=== PATIENT | male | born 1955 | race Caucasian/White ===

== ENCOUNTER 2016-09-02 08:28 | Inpatient (IN) | payer OTHER ==
[2016-09-02 08:45] VITALS: BMI 39.1
--- NOTE | 2016-09-02 12:55 | HP ---
CIWA Score - CIWA Score Nausea/Vomitin Muscle Tremors: 3 Anxiety: 3 Agitation: 3 Paroxysmal Sweats: 2 Orientation: 0-Oriented Tacttile Disturbances: 2-Mild Itch/Numbness/Burn Auditory Disturbances: 2-Mild Harshness/Frighten Visual Disturbances: 2-Mild Sensitivity Headache: 2-Mild CIWA-Ar Total Score: 22 Admission ROS BHS - HPI Chief Complaint: i need help to stop drinking alcohol Allergies/Adverse Reactions: Allergies Allergy/AdvReac Type Severity Reaction Status Date / Time egg Allergy Intermediate Rash Verified 12/19/15 11:37 No Known Drug Allergies Allergy Verified 09/02/16 08:56 Eggs Allergy Intermediate Rash Uncoded 09/02/16 08:56 History of Present Illness: this 61 years old male seeking detox alcohol,several admissions in the past, last [facility] 12/05 multiple medical problem triple by pass 2007/ angioplasty with 2 stents in 2008 hypertension,hypercholestrolemia s/p bilat knee replacement in 2008 s/p gastric by pass in 1999 longest period of sobriety 2 years Exam Limitations: No Limitations - Ebola screening Have you traveled outside of the country in the last 21 days: No Have you been sick,other than usual withdrawal symptoms: No - Review of Systems Constitutional: Loss of Appetite, Malaise, Night Sweats, Weakness EENT: reports: Nose Congestion Respiratory: reports: No Symptoms reported Cardiac: reports: Palpitations, Other (acar in mid sternal area) GI: reports: Diarrhea, Nausea, Vomiting, Abdominal cramping, Other (ascar in mdline of abdomen) : reports: No Symptoms Reported Musculoskeletal: reports: Back Pain, Joint Pain, Joint Stiffness Integumentary: reports: Dryness Neuro: reports: Headache, Tremors Endocrine: reports: No Symptoms Reported Hematology: reports: No Symptoms Reported Psychiatric: reports: Judgement Intact, Mood/Affect Appropiate, Orientated x3, other (bipolar disorder) Patient History - Patient Medical History Hx Anemia: No Hx Asthma: No Hx Chronic Obstructive Pulmonary Disease (COPD): No Hx Cancer: No Hx Cardiac Disorders: Yes (s/p trple by pass surgery in 2007,agioplast with stent in 2008) Hx Congestive Heart Failure: Yes (lasix 40mg ) Hx Hypertension: Yes (on med) Hx Hypercholesterolemia: Yes (no meds at present ) Hx Pacemaker: No HX Cerebrovascular Accident: No Hx Seizures: No Hx Dementia: No Hx Diabetes: No Hx Gastrointestinal Disorders: No Hx Liver Disease: No Hx Genitourinary Disorders: No Hx Sexually Transmitted Disorders: No Hx Renal Disease (ESRD): No Hx Thyroid Disease: No Hx Human Immunodeficiency Virus (HIV): No (last 07/06 negative) Hx Hepatitis C: No Hx Depression: Yes (anxiety and depression) Hx Suicide Attempt: No Hx Bipolar Disorder: Yes Hx Schizophrenia: No Other Medical History: no suiciidal,no homicidal,s/p arin knee replacement,cane ambulation - Patient Surgical History Past Surgical History: Yes Hx Neurologic Surgery: No Hx Cataract Extraction: No Hx Cardiac Surgery: Yes (CABG in 2007, stents x 13) Hx Lung Surgery: No Hx Breast Surgery: No Hx Breast Biopsy: No Hx Abdominal Surgery: Yes (gastric bypass 1999) Hx Appendectomy: No Hx Cholecystectomy: No Hx Genitourinary Surgery: No Hx Section: No Hx Orthopedic Surgery: Yes (Lt knee replacement 2008 R knee replacement 2009) Other Surgical History: Gastric Bypass/CABG/ Anesthesia Reaction: No - PPD History Previous Implant?: Yes Documented Results: Negative w/proof Implanted On Prior [facility] Admission?: Yes Date: 12/09/15 Results: 0MM PPD to be Administered?: Yes - Reproductive History Last Menstrual Period: 12/17/15 - Smoking Cessation Smoking history: Never smoked Have you smoked in the past 12 months: No Aproximately how many cigarettes per day: 0 Cigars Per Day: 0 Hx Chewing Tobacco Use: No - Substance & Tx. History Hx Alcohol Use: Yes Hx Substance Use: Yes Substance Use Type: Alcohol, Cocaine Hx Substance Use Treatment: Yes ([facility] 12/05) - Substances Abused Alcohol Route: Oral Frequency: Daily Amount used: vodka(2 pints) Age of first use: 35 Date of Last Use: 09/01/16 Cocaine Route: Inhalation Frequency: 1-2 times per week Amount used: $30 Age of first use: 35 Date of Last Use: 09/01/16 Family Disease History - Family Disease History Family Disease History: CA: Father (lung ), Mother (brain ), Brother (smokers-lung ca ) Admission Physical Exam BHS - Vital Signs Vital Signs: Vital Signs - 24 hr 09/02/16 08:42 Temperature 97.9 F Pulse Rate 83 Respiratory 20 Rate Blood Pressure 159/80 - Physical General Appearance: Yes: Moderate Distress, Tremorous, Irritable, Sweating, Anxious HEENTM: Yes: Hearing grossly Normal, Normal ENT Inspection, Pharynx Normal, Nasal Congestion Respiratory: Yes: Lungs Clear, Normal Breath Sounds, No Respiratory Distress Neck: Yes: Within Normal Limits, Supple, Trachea in good position Breast: Yes: Within Normal Limits Cardiology: Yes: Within Normal Limits, Regular Rhythm, Regular Rate, S1, S2, Surgical Scar (median sternotomy scar) Abdominal: Yes: Within Normal Limits, Normal Bowel Sounds, Non Tender, Flat, Soft, Surgical Scar (midline abdominal sacr,no umbilicus) Genitourinary: Yes: Within Normal Limits Back: Yes: Muscle Spasm Musculoskeletal: Yes: Back pain Extremities: Yes: Other (s/p bilateral knee repacement cane ambulation) Neurological: Yes: enrobing machine corder II-XII NML intact, Fully Oriented, Alert, Motor Strength 5/5, Normal Mood/Affect, Normal Response Integumentary: Yes: Dry Lymphatic: Yes: Within Normal Limits - Diagnostic (1) Cocaine dependence Current Visit: Yes Status: Acute (2) Gastroesophageal reflux disease Current Visit: Yes Status: Chronic (3) Obesity Current Visit: Yes Status: Chronic (4) Bipolar 1 disorder, manic, moderate Current Visit: No Status: Suspected (5) Alcohol dependence with uncomplicated withdrawal Current Visit: Yes Status: Acute (6) CAD (coronary artery disease) of bypass graft Current Visit: Yes Status: Acute (7) S/P angioplasty with stent Current Visit: Yes Status: Acute (8) History of knee replacement Current Visit: Yes Status: Acute (9) FH: bariatric surgery Current Visit: Yes Status: Acute (10) Anxiety and depression Current Visit: Yes Status: Acute (11) Use of cane as ambulatory aid Current Visit: Yes Status: Acute Cleared for Admission S - Detox or Rehab [facility] Level of Care: Medically Managed Detox Regimen/Protocol: Librium S Breath Alcohol Content Breath Alcohol Content: 0 Urine Drug Screen - Results Drug Screen Negative: No Urine Drug Screen Results: KARTIK-Cocaine
[2016-09-02] MEDS ORDERED: LOPERAMIDE HCL 2 MG CAPSULE PO PRN (13:20)
[2016-09-02] MEDS ORDERED: ACETAMINOPHEN 325 MG TABLET (FP) PO PRN (13:20)
[2016-09-02] MEDS ORDERED: P-EPHED 60MG/TRIPROLIDI 2.5MG TABLET PO PRN (13:20)
[2016-09-02] MEDS ORDERED: MAGNESIUM HYDROX 2400MG/30ML ORAL SUSPENSION 30 ML CUP PO PRN (13:20)
[2016-09-02] MEDS ORDERED: MAG HYDROX/AL HYDROX/SIMETH 30 ML UNIT-DOSE CUP PO PRN (13:20)
[2016-09-02] MEDS ORDERED: MAGNESIUM CITRATE 300 ML BOTTLE PO PRN (13:20)
[2016-09-02] MEDS ORDERED: IBUPROFEN 400 MG TABLET (FP) PO PRN (13:20)
[2016-09-02] MEDS ORDERED: chlordiazePOXIDE HCL 25 MG CAPSULE PO ONE (13:20)
[2016-09-02] MEDS ORDERED: guaiFENesin/D-METHORPHAN HB 10 ML UNIT-DOSE CUPS PO PRN (13:20)
[2016-09-02] MEDS ORDERED: hydrOXYzine PAMOATE 50 MG CAPSULE (FP) PO PRN (13:20)
[2016-09-02] MEDS ORDERED: chlordiazePOXIDE HCL 25 MG CAPSULE PO PRN (13:20)
[2016-09-02] MEDS ORDERED: ALBUTEROL SO4 6.7 GM HFA INHALER IH PRN (13:26)
[2016-09-02] MEDS ORDERED: NITROGLYCERIN SUBLINGUAL 1/150 0.4 MG TAB SL PRN (13:30)
[2016-09-02] MEDS ORDERED: chlordiazePOXIDE HCL 25 MG CAPSULE ONE (14:00)
[2016-09-02] MEDS: MENTHOL/PHENOL 1 EACH UD MM PRN ×2 (14:03→17:26)
[2016-09-02] MEDS: chlordiazePOXIDE HCL 25 MG CAPSULE PO SCH ×2 (17:24→22:18)
[2016-09-02 19:42] LABS: URINE APPEARANCE CLEAR; URINE BILIRUBIN NEGATIVE (NEGATIVE); URINE BLOOD NEGATIVE (NEGATIVE); URINE COLOR YELLOW; URINE GLUCOSE (UA) NEGATIVE (NEGATIVE); URINE KETONE NEGATIVE (NEGATIVE); URINE LEUK ESTERASE NEGATIVE (NEGATIVE); URINE NITRITE NEGATIVE (NEGATIVE); URINE PROTEIN NEGATIVE (NEGATIVE); URINE UROBILINOGEN NEGATIVE E.U./dl (0.2-1.0)
[2016-09-02] MEDS: THIAMINE HCL 100 MG TABLET (FP) PO SCH (22:17)
[2016-09-02] MEDS: RANOLAZINE E.R. 500 MG TABLET (FP) PO SCH (22:17)
[2016-09-02] MEDS: ATORVASTATIN CA 20 MG TABLET (FP) PO SCH (22:17)
[2016-09-02] MEDS: CARVEDILOL 25 MG TABLET (FP) PO SCH (22:18)
[2016-09-02] MEDS: diphenhydrAMINE HCL 50 MG CAPSULE PO PRN (22:18)
[2016-09-03] MEDS: chlordiazePOXIDE HCL 25 MG CAPSULE PO SCH ×4 (05:54→23:00)
--- NOTE | 2016-09-03 09:49 | CONSULT ---
[id number] [facility] Identifying data: Readmission to [facility] for this 61 y/o male seeking detox treatment on for alcohol and cocaine dependence.Patient is ,a father of two,domiciled,disabled and supported on [facility] benefits. Substance Abuse History: - Smoking Cessation. Smoking history: Never smoked. Have you smoked in the past 12 months: No. Aproximately how many cigarettes per day: 0. Cigars Per Day: 0. Hx Chewing Tobacco Use: No. - Substance & Tx. History. Hx Alcohol Use: Yes. Hx Substance Use: Yes. Substance Use Type: Alcohol, Cocaine. Hx Substance Use Treatment: Yes ([facility] 12/05). - Substances Abused. Alcohol. Route: Oral. Frequency: Daily. Amount used: vodka(2 pints). Age of first use: 35. Date of Last Use: 09/01/16. Cocaine. Route : Inhalation. Frequency: 1-2 times per week. Amount used: $30. Age of first use: 35. Date of Last Use: 09/01/16. Confirmed by patient. Medical History: Hypertension,bronchial asthma,hypercholesterolemia and a history of coronary artery bypass graft X 4 (2007).Patient presents also with past history of gastric bypass (1999) and bilateral knee replacement (2007). Psychiatric History: Mr Isaac denies history of psychiatric hospitalizations.He does admits to being diagnosed with MDD and Bipolar Disorder in the past.Patient reports past treatment with seroquel and trazodone.He is currently seeing a private psychiatrist in [facility] for psychotherapy and medication management (trazodone 50 mg/hs).Patient denies history of suicide attempts. Physical/Sexual Abuse/Trauma History: Patient denies. Additional Comment: Urine Drug Screen Results: KARTIK-Cocaine.Noted. Mental Status Exam - Mental Status Exam Alert and Oriented to: Time, Place, Person Cognitive Function: Good Patient Appearance: Unkempt, Disheveled (short stature,obese) Mood: Withdrawn, Hopeful Affect: Constricted Patient Behavior: Fatigued, Cooperative Speech Pattern: Clear, Appropriate Voice Loudness: Normal Thought Process: Goal Oriented Thought Disorder: Not Present Hallucinations: Denies Suicidal Ideation: Denies Homicidal Ideation: Denies Insight/Judgement: Poor Sleep: Poorly, Difficulty falling asleep Appetite: Good Gait/Station: Other (walk with a cane) Psychiatric Findings - Problem List (Keller 1, 2,3) (1) Alcohol dependence with uncomplicated withdrawal Status: Acute (2) Cocaine dependence Status: Acute (3) Drug-induced mood disorder Status: Acute (4) HLD (hyperlipidemia) Status: Chronic (5) HTN (hypertension) Status: Chronic (6) Hx of CABG Status: Chronic (7) Stented coronary artery Status: Chronic (8) CHF (congestive heart failure) Status: Chronic Qualifiers: Congestive heart failure type: combined Congestive heart failure chronicity: chronic Qualified Code(s): I50.42 - Chronic combined systolic (congestive) and diastolic (congestive) heart failure (9) Gastroesophageal reflux disease Status: Chronic (10) Obesity Status: Chronic (11) Insomnia Status: Acute - Initial Treatment Plan Initial Treatment Plan: Psychoeducation.Detoxification.Trazodone 50 mg po hs.Patient is made aware of the potential for priapism.Instructed to stop trazodone/seek immediate medical attention if occurrence of painful/prolonged erection.Patient reports good tolerability to the medication.Agrees to continue on trazodone.Observation.
[2016-09-03] MEDS ORDERED: PATIENT'S OWN MEDICATION (NON-FORMULARY) (Olmesartan/Hydrochlorothiazide [Benicar Hct 40-2 PO SCH (10:00)
[2016-09-03] MEDS ORDERED: FENOFIBRATE 145 MG PO SCH (10:00)
[2016-09-03 10:11] LABS: MCH 29.1 pg (25.7-33.7); MEAN CELL VOLUME 87.9 fl (80-96); MEAN PLT VOLUME 10.5 fl (7.5-11.1); PLATELET COUNT 140 K/MM3 (134-434); RDW 15.3 % (11.9-15.9); WHITE BLOOD COUNT 7.7 K/mm3 (4.0-10.0)
[2016-09-03 10:22] LABS: ALBUMIN 3.4 g/dl (3.4-5.0); ALK PHOS 60 U/L (45-117); ANION GAP 8 (8-16); BILIRUBIN,TOTAL 0.6 mg/dL (0.2-1.0); CALCIUM 8.5 mg/dL (8.5-10.1); CO2 28 mmol/L (21-32); COCKROFT - GAULT 116.95; GLUCOSE,RANDOM 83 mg/dL (74-106); SGOT/AST 19 U/L (15-37); SGPT/ALT 23 U/L (12-78); TOT PROT 6.5 g/dl (6.4-8.2)
[2016-09-03] MEDS: CARVEDILOL 25 MG TABLET (FP) PO SCH ×2 (10:26→23:14)
[2016-09-03] MEDS: FENOFIBRIC ACID 135 MG CAP PO SCH (10:26)
[2016-09-03] MEDS: ISOSORBIDE MONONITRATE 30 MG TAB.SR.24H (FP) PO SCH (10:26)
[2016-09-03] MEDS: FUROSEMIDE 40 MG TABLET (FP) PO SCH (10:26)
[2016-09-03] MEDS: RANOLAZINE E.R. 500 MG TABLET (FP) PO SCH ×2 (10:26→23:00)
[2016-09-03] MEDS: MENTHOL/PHENOL 1 EACH UD MM PRN (10:26)
[2016-09-03] MEDS: HYDROCHLOROTHIAZIDE 25 MG TABLET (FP) PO SCH (10:26)
[2016-09-03] MEDS: ASPIRIN 81 MG CHEWABLE TABLETS PO SCH (10:26)
[2016-09-03] MEDS: PRENATAL VITAMINS W/ FOLIC ACID TABLET (FP) PO SCH (10:26)
[2016-09-03] MEDS: VALSARTAN 160 MG TABLET (UD) PO SCH (10:26)
[2016-09-03] MEDS: CLOPIDOGREL BISULFATE 75 MG TABLET (FP) PO SCH (10:26)
--- NOTE | 2016-09-03 12:55 | PN ---
[facility] CIWA - CIWA Score Nausea/Vomitin-No Nausea/No Vomiting Muscle Tremors: 4-Moderate,w/Arms Extend Anxiety: 4-Mod. Anxious/Guarded Agitation: 3 Paroxysmal Sweats: 3 Orientation: 0-Oriented Tacttile Disturbances: 1-Very Mild Itch/Numbness Auditory Disturbances: 0-None Visual Disturbances: 0-None Headache: 0-None Present CIWA-Ar Total Score: 15 S Progress Note (SOAP) Subjective: Anxiety,tremors,sweating,interrupted sleep,restless Objective: 09/03/16 12:54 Vital Signs - 8 hr 09/03/16 09/03/16 06:23 09:23 Temperature 96.8 F L 97.1 F L Pulse Rate 74 80 Respiratory 18 18 Rate Blood Pressure 130/88 129/79 Laboratory Last Values WBC 7.7 K/mm3 (4.0-10.0) 09/03/16 08:00 RBC 5.28 M/mm3 (4.00-5.60) 09/03/16 08:00 Hgb 15.4 GM/dL (11.7-16.9) D 09/03/16 08:00 Hct 46.5 % (35.4-49) 09/03/16 08:00 MCV 87.9 fl (80-96) 09/03/16 08:00 MCHC 33.0 g/dl (32.0-35.9) 09/03/16 08:00 RDW 15.3 % (11.9-15.9) 09/03/16 08:00 Plt Count 140 K/MM3 (134-434) 09/03/16 08:00 MPV 10.5 fl (7.5-11.1) D 09/03/16 08:00 Sodium 138 mmol/L (136-145) 09/03/16 08:00 Potassium 4.4 mmol/L (3.5-5.1) 09/03/16 08:00 Chloride 102 mmol/L (98-107) 09/03/16 08:00 Carbon Dioxide 28 mmol/L (21-32) 09/03/16 08:00 Anion Gap 8 (8-16) 09/03/16 08:00 BUN 17 mg/dL (7-18) 09/03/16 08:00 Creatinine 1.0 mg/dL (0.7-1.3) 09/03/16 08:00 Creat Clearance w eGFR > 60 (>60) 09/03/16 08:00 Random Glucose 83 mg/dL (74-106) 09/03/16 08:00 Calcium 8.5 mg/dL (8.5-10.1) 09/03/16 08:00 Total Bilirubin 0.6 mg/dL (0.2-1.0) D 09/03/16 08:00 AST 19 U/L (15-37) 09/03/16 08:00 ALT 23 U/L (12-78) 09/03/16 08:00 Alkaline Phosphatase 60 U/L (45-117) 09/03/16 08:00 Total Protein 6.5 g/dl (6.4-8.2) 09/03/16 08:00 Albumin 3.4 g/dl (3.4-5.0) 09/03/16 08:00 Urine Color Yellow 09/02/16 Unknown Urine Appearance Clear 09/02/16 Unknown Urine pH 5.0 (5.0-8.0) 09/02/16 Unknown Ur Specific [place] 1.020 (1.005-1.025) 09/02/16 Unknown Urine Protein Negative (NEGATIVE) 09/02/16 Unknown Urine Glucose (UA) Negative (NEGATIVE) 09/02/16 Unknown Urine Ketones Negative (NEGATIVE) 09/02/16 Unknown Urine Blood Negative (NEGATIVE) 09/02/16 Unknown Urine Nitrite Negative (NEGATIVE) 09/02/16 Unknown Urine Bilirubin Negative (NEGATIVE) 09/02/16 Unknown Urine Urobilinogen Negative E.U./dl (0.2-1.0) 09/02/16 Unknown Ur Leukocyte Esterase Negative (NEGATIVE) 09/02/16 Unknown labs noted Assessment: 09/03/16 12:54 Withdrawal sx. Plan: Continue detox
--- NOTE | 2016-09-03 13:03 | EKG ---
Test Reason : Blood Pressure : / mmHG Vent. Rate : 079 BPM Atrial Rate : 079 BPM P-R Int : 160 ms QRS Dur : 090 ms QT Int : 376 ms P-R-T Axes : 051 012 040 degrees QTc Int : 431 ms NORMAL SINUS RHYTHM POSSIBLE LEFT ATRIAL ENLARGEMENT INFERIOR INFARCT , AGE UNDETERMINED ABNORMAL ECG WHEN COMPARED WITH ECG OF 19-DEC-2015 15:06, LIKELY NO SIGNIFICANT CHANGES WERE SEEN Confirmed by ABDULLAHI ARSHAD, [place] ([id number]) on 09/03/2016 1:03:02 PM Referred By: Brandon Orantes Confirmed By:ITALIA FERNANDO MD
[2016-09-03] MEDS: THIAMINE HCL 100 MG TABLET (FP) PO SCH (22:59)
[2016-09-03] MEDS: ATORVASTATIN CA 20 MG TABLET (FP) PO SCH (23:00)
[2016-09-03] MEDS: diphenhydrAMINE HCL 50 MG CAPSULE PO PRN (23:01)
[2016-09-04] MEDS: chlordiazePOXIDE HCL 25 MG CAPSULE PO SCH ×2 (05:59→10:30)
[2016-09-04] MEDS: FENOFIBRIC ACID 135 MG CAP PO SCH (10:30)
[2016-09-04] MEDS: RANOLAZINE E.R. 500 MG TABLET (FP) PO SCH ×2 (10:30→22:16)
[2016-09-04] MEDS: ASPIRIN 81 MG CHEWABLE TABLETS PO SCH (10:30)
[2016-09-04] MEDS: VALSARTAN 160 MG TABLET (UD) PO SCH (10:30)
[2016-09-04] MEDS: CARVEDILOL 25 MG TABLET (FP) PO SCH ×2 (10:31→22:16)
[2016-09-04] MEDS: HYDROCHLOROTHIAZIDE 25 MG TABLET (FP) PO SCH (10:31)
[2016-09-04] MEDS: CLOPIDOGREL BISULFATE 75 MG TABLET (FP) PO SCH (10:31)
[2016-09-04] MEDS: ISOSORBIDE MONONITRATE 30 MG TAB.SR.24H (FP) PO SCH (10:31)
[2016-09-04] MEDS: PRENATAL VITAMINS W/ FOLIC ACID TABLET (FP) PO SCH (10:31)
[2016-09-04] MEDS: FUROSEMIDE 40 MG TABLET (FP) PO SCH (10:31)
--- NOTE | 2016-09-04 12:00 | PN ---
[facility] CIWA - CIWA Score Nausea/Vomitin-No Nausea/No Vomiting Muscle Tremors: 4-Moderate,w/Arms Extend Anxiety: 4-Mod. Anxious/Guarded Agitation: 4-Moderately Restless Paroxysmal Sweats: 1-Minimal Palms Moist Orientation: 0-Oriented Tacttile Disturbances: 3-Moderate Itch/Numb/Burn Auditory Disturbances: 0-None Visual Disturbances: 0-None Headache: 0-None Present CIWA-Ar Total Score: 16 BHS Progress Note (SOAP) Subjective: SWEATS,ANXIETY,SLIGHT TREMORS. Objective: 09/04/16 12:00 Vital Signs Temperature 96.8 F L 09/04/16 10:28 Pulse Rate 83 09/04/16 10:28 Respiratory Rate 18 09/04/16 10:28 Blood Pressure 129/86 09/04/16 10:28 O2 Sat by Pulse Oximetry (%) Laboratory Last Values WBC 7.7 K/mm3 (4.0-10.0) 09/03/16 08:00 RBC 5.28 M/mm3 (4.00-5.60) 09/03/16 08:00 Hgb 15.4 GM/dL (11.7-16.9) D 09/03/16 08:00 Hct 46.5 % (35.4-49) 09/03/16 08:00 MCV 87.9 fl (80-96) 09/03/16 08:00 MCHC 33.0 g/dl (32.0-35.9) 09/03/16 08:00 RDW 15.3 % (11.9-15.9) 09/03/16 08:00 Plt Count 140 K/MM3 (134-434) 09/03/16 08:00 MPV 10.5 fl (7.5-11.1) D 09/03/16 08:00 Sodium 138 mmol/L (136-145) 09/03/16 08:00 Potassium 4.4 mmol/L (3.5-5.1) 09/03/16 08:00 Chloride 102 mmol/L (98-107) 09/03/16 08:00 Carbon Dioxide 28 mmol/L (21-32) 09/03/16 08:00 Anion Gap 8 (8-16) 09/03/16 08:00 BUN 17 mg/dL (7-18) 09/03/16 08:00 Creatinine 1.0 mg/dL (0.7-1.3) 09/03/16 08:00 Creat Clearance w eGFR > 60 (>60) 09/03/16 08:00 Random Glucose 83 mg/dL (74-106) 09/03/16 08:00 Calcium 8.5 mg/dL (8.5-10.1) 09/03/16 08:00 Total Bilirubin 0.6 mg/dL (0.2-1.0) D 09/03/16 08:00 AST 19 U/L (15-37) 09/03/16 08:00 ALT 23 U/L (12-78) 09/03/16 08:00 Alkaline Phosphatase 60 U/L (45-117) 09/03/16 08:00 Total Protein 6.5 g/dl (6.4-8.2) 09/03/16 08:00 Albumin 3.4 g/dl (3.4-5.0) 09/03/16 08:00 Urine Color Yellow 09/02/16 Unknown Urine Appearance Clear 09/02/16 Unknown Urine pH 5.0 (5.0-8.0) 09/02/16 Unknown Ur Specific [place] 1.020 (1.005-1.025) 09/02/16 Unknown Urine Protein Negative (NEGATIVE) 09/02/16 Unknown Urine Glucose (UA) Negative (NEGATIVE) 09/02/16 Unknown Urine Ketones Negative (NEGATIVE) 09/02/16 Unknown Urine Blood Negative (NEGATIVE) 09/02/16 Unknown Urine Nitrite Negative (NEGATIVE) 09/02/16 Unknown Urine Bilirubin Negative (NEGATIVE) 09/02/16 Unknown Urine Urobilinogen Negative E.U./dl (0.2-1.0) 09/02/16 Unknown Ur Leukocyte Esterase Negative (NEGATIVE) 09/02/16 Unknown RPR Titer Nonreactive (NONREACTIVE) 09/03/16 08:00 Assessment: 09/04/16 12:00 WITHDRAWAL SX Plan: CONTINUE DETOX
[2016-09-04] MEDS: chlordiazePOXIDE 5 MG CAPSULE PO SCH ×2 (17:19→22:16)
[2016-09-04] MEDS: MENTHOL/PHENOL 1 EACH UD MM PRN (17:21)
[2016-09-04] MEDS: ATORVASTATIN CA 20 MG TABLET (FP) PO SCH (22:16)
[2016-09-04] MEDS: diphenhydrAMINE HCL 50 MG CAPSULE PO PRN (22:18)
[2016-09-04] MEDS: THIAMINE HCL 100 MG TABLET (FP) PO SCH (22:50)
[2016-09-05] MEDS: chlordiazePOXIDE 5 MG CAPSULE PO SCH ×2 (05:41→10:30)
[2016-09-05] MEDS: PRENATAL VITAMINS W/ FOLIC ACID TABLET (FP) PO SCH (10:26)
[2016-09-05] MEDS: ASPIRIN 81 MG CHEWABLE TABLETS PO SCH (10:26)
[2016-09-05] MEDS: FENOFIBRIC ACID 135 MG CAP PO SCH (10:26)
[2016-09-05] MEDS: VALSARTAN 160 MG TABLET (UD) PO SCH (10:26)
[2016-09-05] MEDS: RANOLAZINE E.R. 500 MG TABLET (FP) PO SCH ×2 (10:26→22:14)
[2016-09-05] MEDS: FUROSEMIDE 40 MG TABLET (FP) PO SCH (10:26)
[2016-09-05] MEDS: HYDROCHLOROTHIAZIDE 25 MG TABLET (FP) PO SCH (10:26)
[2016-09-05] MEDS: ISOSORBIDE MONONITRATE 30 MG TAB.SR.24H (FP) PO SCH (10:26)
[2016-09-05] MEDS: CARVEDILOL 25 MG TABLET (FP) PO SCH ×2 (10:27→22:14)
[2016-09-05] MEDS: CLOPIDOGREL BISULFATE 75 MG TABLET (FP) PO SCH (10:27)
[2016-09-05] MEDS ORDERED: IBUPROFEN 400 MG TABLET (FP) PO PRN (11:12)
--- NOTE | 2016-09-05 13:28 | PN ---
S Progress Note (SOAP) Subjective: Interrupted sleep, Body Aches. Pt. reporting pain in Right foot, particularly around Big toe X 1 day. Pt. reports history of Gout, which he has previously been prescribed medication for. However, pt. reports that he has not taken Gout medication for the last five months. Objective: PT. A & O X 3. SLIGHT SWELLING NOTED IN BIG TOE OF RIGHT FOOT. NO REDNESS, INJURY, DISCOLORATION, BLEEDING OR UNUSUAL DISCHARGE, OR SIGN OF INFECTION NOTED AT SITE. 09/05/16 13:24 Vital Signs Temperature 98.4 F 09/05/16 10:23 Pulse Rate 77 09/05/16 10:23 Respiratory Rate 18 09/05/16 10:23 Blood Pressure 119/79 09/05/16 10:23 O2 Sat by Pulse Oximetry (%) Laboratory Last Values WBC 7.7 K/mm3 (4.0-10.0) 09/03/16 08:00 RBC 5.28 M/mm3 (4.00-5.60) 09/03/16 08:00 Hgb 15.4 GM/dL (11.7-16.9) D 09/03/16 08:00 Hct 46.5 % (35.4-49) 09/03/16 08:00 MCV 87.9 fl (80-96) 09/03/16 08:00 MCHC 33.0 g/dl (32.0-35.9) 09/03/16 08:00 RDW 15.3 % (11.9-15.9) 09/03/16 08:00 Plt Count 140 K/MM3 (134-434) 09/03/16 08:00 MPV 10.5 fl (7.5-11.1) D 09/03/16 08:00 Sodium 138 mmol/L (136-145) 09/03/16 08:00 Potassium 4.4 mmol/L (3.5-5.1) 09/03/16 08:00 Chloride 102 mmol/L (98-107) 09/03/16 08:00 Carbon Dioxide 28 mmol/L (21-32) 09/03/16 08:00 Anion Gap 8 (8-16) 09/03/16 08:00 BUN 17 mg/dL (7-18) 09/03/16 08:00 Creatinine 1.0 mg/dL (0.7-1.3) 09/03/16 08:00 Creat Clearance w eGFR > 60 (>60) 09/03/16 08:00 Random Glucose 83 mg/dL (74-106) 09/03/16 08:00 Calcium 8.5 mg/dL (8.5-10.1) 09/03/16 08:00 Total Bilirubin 0.6 mg/dL (0.2-1.0) D 09/03/16 08:00 AST 19 U/L (15-37) 09/03/16 08:00 ALT 23 U/L (12-78) 09/03/16 08:00 Alkaline Phosphatase 60 U/L (45-117) 09/03/16 08:00 Total Protein 6.5 g/dl (6.4-8.2) 09/03/16 08:00 Albumin 3.4 g/dl (3.4-5.0) 09/03/16 08:00 Urine Color Yellow 09/02/16 Unknown Urine Appearance Clear 09/02/16 Unknown Urine pH 5.0 (5.0-8.0) 09/02/16 Unknown Ur Specific [place] 1.020 (1.005-1.025) 09/02/16 Unknown Urine Protein Negative (NEGATIVE) 09/02/16 Unknown Urine Glucose (UA) Negative (NEGATIVE) 09/02/16 Unknown Urine Ketones Negative (NEGATIVE) 09/02/16 Unknown Urine Blood Negative (NEGATIVE) 09/02/16 Unknown Urine Nitrite Negative (NEGATIVE) 09/02/16 Unknown Urine Bilirubin Negative (NEGATIVE) 09/02/16 Unknown Urine Urobilinogen Negative E.U./dl (0.2-1.0) 09/02/16 Unknown Ur Leukocyte Esterase Negative (NEGATIVE) 09/02/16 Unknown RPR Titer Nonreactive (NONREACTIVE) 09/03/16 08:00 LABS NOTED. Assessment: 09/05/16 13:27 WITHDRAWAL SYMPTOMS. Plan: CONTINUE DETOX. PRN IBUPROFEN FOR RIGHT FOOT PAIN. ADVISED PATIENT TO FOLLOW-UP WITH JEWEL OLIVING MACHINE OPERATOR AFTER DISCHARGE FROM DETOX FOR GENERAL MEDICAL ASSESSMENT AND FOR ABNORMAL ADMISSION LAB VALUES AND FOR HISTORY OF GOUT.
[2016-09-05] MEDS: chlordiazePOXIDE HCL 10 MG CAPSULE PO SCH ×2 (17:50→22:14)
[2016-09-05] MEDS: ATORVASTATIN CA 20 MG TABLET (FP) PO SCH (22:14)
[2016-09-05] MEDS: THIAMINE HCL 100 MG TABLET (FP) PO SCH (22:14)
[2016-09-05] MEDS: MENTHOL/PHENOL 1 EACH UD MM PRN (22:15)
[2016-09-06] MEDS: chlordiazePOXIDE HCL 10 MG CAPSULE PO SCH ×2 (05:37→10:21)
[2016-09-06] MEDS: CARVEDILOL 25 MG TABLET (FP) PO SCH ×2 (10:18→21:50)
[2016-09-06] MEDS: FUROSEMIDE 40 MG TABLET (FP) PO SCH (10:18)
[2016-09-06] MEDS: HYDROCHLOROTHIAZIDE 25 MG TABLET (FP) PO SCH (10:18)
[2016-09-06] MEDS: ASPIRIN 81 MG CHEWABLE TABLETS PO SCH (10:18)
[2016-09-06] MEDS: CLOPIDOGREL BISULFATE 75 MG TABLET (FP) PO SCH (10:18)
[2016-09-06] MEDS: VALSARTAN 160 MG TABLET (UD) PO SCH (10:18)
[2016-09-06] MEDS: ISOSORBIDE MONONITRATE 30 MG TAB.SR.24H (FP) PO SCH (10:18)
[2016-09-06] MEDS: FENOFIBRIC ACID 135 MG CAP PO SCH (10:19)
[2016-09-06] MEDS: RANOLAZINE E.R. 500 MG TABLET (FP) PO SCH ×2 (10:19→21:50)
[2016-09-06] MEDS: PRENATAL VITAMINS W/ FOLIC ACID TABLET (FP) PO SCH (10:19)
--- NOTE | 2016-09-06 12:48 | PN ---
BHS Progress Note (SOAP) Subjective: Interrupted Sleep only Detox Symptom reported by patient today. Objective: PT. A & O X 3. 09/06/16 12:46 Vital Signs Temperature 96.5 F L 09/06/16 09:38 Pulse Rate 78 09/06/16 09:38 Respiratory Rate 18 09/06/16 09:38 Blood Pressure 122/79 09/06/16 09:38 O2 Sat by Pulse Oximetry (%) Laboratory Last Values WBC 7.7 K/mm3 (4.0-10.0) 09/03/16 08:00 RBC 5.28 M/mm3 (4.00-5.60) 09/03/16 08:00 Hgb 15.4 GM/dL (11.7-16.9) D 09/03/16 08:00 Hct 46.5 % (35.4-49) 09/03/16 08:00 MCV 87.9 fl (80-96) 09/03/16 08:00 MCHC 33.0 g/dl (32.0-35.9) 09/03/16 08:00 RDW 15.3 % (11.9-15.9) 09/03/16 08:00 Plt Count 140 K/MM3 (134-434) 09/03/16 08:00 MPV 10.5 fl (7.5-11.1) D 09/03/16 08:00 Sodium 138 mmol/L (136-145) 09/03/16 08:00 Potassium 4.4 mmol/L (3.5-5.1) 09/03/16 08:00 Chloride 102 mmol/L (98-107) 09/03/16 08:00 Carbon Dioxide 28 mmol/L (21-32) 09/03/16 08:00 Anion Gap 8 (8-16) 09/03/16 08:00 BUN 17 mg/dL (7-18) 09/03/16 08:00 Creatinine 1.0 mg/dL (0.7-1.3) 09/03/16 08:00 Creat Clearance w eGFR > 60 (>60) 09/03/16 08:00 Random Glucose 83 mg/dL (74-106) 09/03/16 08:00 Calcium 8.5 mg/dL (8.5-10.1) 09/03/16 08:00 Total Bilirubin 0.6 mg/dL (0.2-1.0) D 09/03/16 08:00 AST 19 U/L (15-37) 09/03/16 08:00 ALT 23 U/L (12-78) 09/03/16 08:00 Alkaline Phosphatase 60 U/L (45-117) 09/03/16 08:00 Total Protein 6.5 g/dl (6.4-8.2) 09/03/16 08:00 Albumin 3.4 g/dl (3.4-5.0) 09/03/16 08:00 Urine Color Yellow 09/02/16 Unknown Urine Appearance Clear 09/02/16 Unknown Urine pH 5.0 (5.0-8.0) 09/02/16 Unknown Ur Specific [place] 1.020 (1.005-1.025) 09/02/16 Unknown Urine Protein Negative (NEGATIVE) 09/02/16 Unknown Urine Glucose (UA) Negative (NEGATIVE) 09/02/16 Unknown Urine Ketones Negative (NEGATIVE) 09/02/16 Unknown Urine Blood Negative (NEGATIVE) 09/02/16 Unknown Urine Nitrite Negative (NEGATIVE) 09/02/16 Unknown Urine Bilirubin Negative (NEGATIVE) 09/02/16 Unknown Urine Urobilinogen Negative E.U./dl (0.2-1.0) 09/02/16 Unknown Ur Leukocyte Esterase Negative (NEGATIVE) 09/02/16 Unknown RPR Titer Nonreactive (NONREACTIVE) 09/03/16 08:00 LABS NOTED. Assessment: 09/06/16 12:47 WITHDRAWAL SYMPTOMS. Plan: CONTINUE DETOX. ADVISED PATIENT TO FOLLOW-UP WITH LAUNDERETTE ATTENDANT AFTER DISCHARGE FROM DETOX FOR GENERAL MEDICAL ASSESSMENT AND FOR ABNORMAL DETOX ADMISSION LAB VALUES.
[2016-09-06] MEDS: MENTHOL/PHENOL 1 EACH UD MM PRN (19:01)
[2016-09-06] MEDS: ATORVASTATIN CA 20 MG TABLET (FP) PO SCH (21:50)
[2016-09-06] MEDS: THIAMINE HCL 100 MG TABLET (FP) PO SCH (21:50)
[2016-09-07 06:23] VITALS: BP 110/69; PULSE 68; TEMP 98
--- NOTE | 2016-09-07 13:09 | DS ---
[facility] Detox Discharge Summary Admission Date: 09/02/16 Discharge Date: 09/07/16 - History Present History: Alcohol Dependence Additional Comments: ADVISED PATIENT TO FOLLOW-UP WITH TELECOMMUNICATIONS REPAIRER AFTER DISCHARGE FROM DETOX FOR GENERAL MEDICAL ASSESSMENT. Pertinent Past History: GERD, Hypercholesterolemia, HTN, CHF, History of Triple Bypass Surgery, History of Angioplasty with Stent Placement. - Physical Exam Results Vital Signs: Vital Signs Temperature 98 F 09/07/16 06:25 Pulse Rate 68 09/07/16 06:25 Respiratory Rate 16 09/07/16 06:25 Blood Pressure 110/69 09/07/16 06:25 O2 Sat by Pulse Oximetry (%) Pertinent Admission Physical Exam Findings: WITHDRAWAL SYMPTOMS. Laboratory Last Values WBC 7.7 K/mm3 (4.0-10.0) 09/03/16 08:00 RBC 5.28 M/mm3 (4.00-5.60) 09/03/16 08:00 Hgb 15.4 GM/dL (11.7-16.9) D 09/03/16 08:00 Hct 46.5 % (35.4-49) 09/03/16 08:00 MCV 87.9 fl (80-96) 09/03/16 08:00 MCHC 33.0 g/dl (32.0-35.9) 09/03/16 08:00 RDW 15.3 % (11.9-15.9) 09/03/16 08:00 Plt Count 140 K/MM3 (134-434) 09/03/16 08:00 MPV 10.5 fl (7.5-11.1) D 09/03/16 08:00 Sodium 138 mmol/L (136-145) 09/03/16 08:00 Potassium 4.4 mmol/L (3.5-5.1) 09/03/16 08:00 Chloride 102 mmol/L (98-107) 09/03/16 08:00 Carbon Dioxide 28 mmol/L (21-32) 09/03/16 08:00 Anion Gap 8 (8-16) 09/03/16 08:00 BUN 17 mg/dL (7-18) 09/03/16 08:00 Creatinine 1.0 mg/dL (0.7-1.3) 09/03/16 08:00 Creat Clearance w eGFR > 60 (>60) 09/03/16 08:00 Random Glucose 83 mg/dL (74-106) 09/03/16 08:00 Calcium 8.5 mg/dL (8.5-10.1) 09/03/16 08:00 Total Bilirubin 0.6 mg/dL (0.2-1.0) D 09/03/16 08:00 AST 19 U/L (15-37) 09/03/16 08:00 ALT 23 U/L (12-78) 09/03/16 08:00 Alkaline Phosphatase 60 U/L (45-117) 09/03/16 08:00 Total Protein 6.5 g/dl (6.4-8.2) 09/03/16 08:00 Albumin 3.4 g/dl (3.4-5.0) 09/03/16 08:00 Urine Color Yellow 09/02/16 Unknown Urine Appearance Clear 09/02/16 Unknown Urine pH 5.0 (5.0-8.0) 09/02/16 Unknown Ur Specific [place] 1.020 (1.005-1.025) 09/02/16 Unknown Urine Protein Negative (NEGATIVE) 09/02/16 Unknown Urine Glucose (UA) Negative (NEGATIVE) 09/02/16 Unknown Urine Ketones Negative (NEGATIVE) 09/02/16 Unknown Urine Blood Negative (NEGATIVE) 09/02/16 Unknown Urine Nitrite Negative (NEGATIVE) 09/02/16 Unknown Urine Bilirubin Negative (NEGATIVE) 09/02/16 Unknown Urine Urobilinogen Negative E.U./dl (0.2-1.0) 09/02/16 Unknown Ur Leukocyte Esterase Negative (NEGATIVE) 09/02/16 Unknown RPR Titer Nonreactive (NONREACTIVE) 09/03/16 08:00 LABS NOTED. - Treatment Hospital Course: Detox Protocol Followed, Detoxed Safely, Responded well, Discharged Condition Good Patient has Accepted a Rehab Referral to: NO - PT. ATTENDS [facility] OUTPATIENT TREATMENT PROGRAM. - Medication Discharge Medications: Ambulatory Orders Aspirin [ASA -] 81 mg PO DAILY 09/15/13 Albuterol Sulfate Inhaler - [Ventolin HFA Inhaler -] 2 inh PO Q4H PRN 12/12/15 Nitroglycerin [Nitrostat] 0.4 mg SL PRN 12/12/15 Carvedilol [Coreg -] 25 mg PO BID 09/02/16 Clopidogrel Bisulfate [Plavix -] 75 mg PO DAILY 09/02/16 Fenofibrate [Lipofen] 145 mg PO DAILY 09/02/16 Furosemide [Lasix -] 40 mg PO DAILY 09/02/16 Isosorbide Mononitrate [Imdur -] 30 mg PO DAILY 09/02/16 Olmesartan/Hydrochlorothiazide [Benicar Hct 40-25 mg Tablet] 1 each PO DAILY Simvastatin 40 mg PO DAILY 09/02/16 - Diagnosis (1) Alcohol dependence with uncomplicated withdrawal Status: Acute (2) CAD (coronary artery disease) of bypass graft Status: Chronic Qualifiers: [place] vs. transplanted heart: unspecified whether [place] or transplanted heart Associated angina: angina presence unspecified Qualified Code(s ): I25.810 - Atherosclerosis of coronary artery bypass graft(s) without angina pectoris (3) Drug-induced mood disorder Status: Acute (4) FH: bariatric surgery Status: Chronic (5) History of knee replacement Status: Chronic Qualifiers: Laterality: unspecified laterality Qualified Code(s): Z96.659 - Presence of unspecified artificial knee joint (6) S/P angioplasty with stent Status: Chronic (7) Use of cane as ambulatory aid Status: Chronic (8) CHF (congestive heart failure) Status: Chronic Qualifiers: Congestive heart failure type: combined Congestive heart failure chronicity: chronic Qualified Code(s): I50.42 - Chronic combined systolic (congestive) and diastolic (congestive) heart failure (9) Gastroesophageal reflux disease Status: Chronic (10) HLD (hyperlipidemia) Status: Chronic Qualifiers: Hyperlipidemia type: unspecified Qualified Code(s): E78.5 - Hyperlipidemia, unspecified (11) HTN (hypertension) Status: Chronic Qualifiers: Hypertension type: essential hypertension Qualified Code(s): I10 - Essential (primary) hypertension (12) Hx of CABG Status: Chronic (13) Cocaine dependence Status: Acute - AMA Did Patient Leave Against Medical Advice: No
== END 2016-09-07 08:59 | disposition home or self-care (01) | DRG 897 ==
LOC: YASAS 08:28 → Y3N 09:41
PROVIDERS: ADMIT Internal Medicine Addiction Medicine; ATTEND Internal Medicine Addiction Medicine
PROC: HZ2ZZZZ Detoxification Services for Substance Abuse Treatment (ICD-10-PCS; principal; 2016-09-07)
DX: F10.230 Alcohol dependence with withdrawal, uncomplicated (principal); F14.20 Cocaine dependence, uncomplicated; I50.42 Chronic combined systolic (congestive) and diastolic (congestive) heart failure; F19.24 Other psychoactive substance dependence with psychoactive substance-induced mood disorder; I25.10 Atherosclerotic heart disease of native coronary artery without angina pectoris; Z95.1 Presence of aortocoronary bypass graft; Z95.5 Presence of coronary angioplasty implant and graft; Z57.31 Occupational exposure to environmental tobacco smoke; E78.5 Hyperlipidemia, unspecified; K21.9 Gastro-esophageal reflux disease without esophagitis; Z96.659 Presence of unspecified artificial knee joint; R26.89 Other abnormalities of gait and mobility; Z99.89 Dependence on other enabling machines and devices; E66.09 Other obesity due to excess calories; Z68.39 Body mass index [BMI] 39.0-39.9, adult
CPT/HCPCS: 36415; 80053; 81003; 85027; 86593; 93005; 93010

== ENCOUNTER 2017-08-10 09:30 | Inpatient (IN) | payer OTHER ==
[2017-08-10 10:38] VITALS: BMI 41.5
--- NOTE | 2017-08-10 11:01 | HP ---
CIWA Score - CIWA Score Nausea/Vomitin-Mild Nausea/No Vomiting Muscle Tremors: 4-Moderate,w/Arms Extend Anxiety: 4-Mod. Anxious/Guarded Agitation: 4-Moderately Restless Paroxysmal Sweats: 1-Minimal Palms Moist Orientation: 2-Disoriented Date<2 days Tacttile Disturbances: 1-Very Mild Itch/Numbness Auditory Disturbances: 0-None Visual Disturbances: 0-None Headache: 2-Mild CIWA-Ar Total Score: 19 Admission ROS BHS - HPI Chief Complaint: I want to turn my life around, be a normal person, get to know my grandchild, stop living like a bum Allergies/Adverse Reactions: Allergies Allergy/AdvReac Type Severity Reaction Status Date / Time egg Allergy Intermediate Rash Verified 08/10/17 11:10 No Known Drug Allergies Allergy Verified 08/10/17 11:10 History of Present Illness: 62 yo gentleman here for detox from alcohol - currently homeless for 8 months - living on the streets - this is one of multiple admissions - last time here in August 2016. No seizures but does have black outs. Reports being in [facility] emergency room last night 'to sleep' and given ativan there (thus + bzo in urine tox). Exam Limitations: Clinical Condition - Ebola screening Have you traveled outside of the country in the last 21 days: No (N) Have you had contact with anyone from an Ebola affected area: No Have you been sick,other than usual withdrawal symptoms: No Do you have a fever: No - Review of Systems Constitutional: Loss of Appetite, Malaise, Changes in sleep EENT: reports: Blurred Vision, Nose Congestion Respiratory: reports: Cough Cardiac: reports: No Symptoms Reported GI: reports: Nausea, Poor Appetite, Indigestion : reports: Frequency Musculoskeletal: reports: Back Pain, Muscle Pain, Other (restless) Integumentary: reports: Dryness Neuro: reports: Headache, Tremors Endocrine: reports: No Symptoms Reported Hematology: reports: No Symptoms Reported Psychiatric: reports: Judgement Intact, Mood/Affect Appropiate, Anxious Other Systems: Reviewed and Negative Patient History - Patient Medical History Hx Anemia: No Hx Asthma: No Hx Chronic Obstructive Pulmonary Disease (COPD): No Hx Cancer: No Hx Cardiac Disorders: Yes (s/p trple by pass surgery in 2007,agioplast with stent in 2008) Hx Congestive Heart Failure: Yes (lasix 40mg ) Hx Hypertension: Yes (on med) Hx Hypercholesterolemia: Yes (no meds at present ) Hx Pacemaker: No HX Cerebrovascular Accident: No Hx Seizures: No Hx Dementia: No Hx Diabetes: No Hx Gastrointestinal Disorders: No Hx Liver Disease: No Hx Genitourinary Disorders: No Hx Sexually Transmitted Disorders: No Hx Renal Disease (ESRD): No Hx Thyroid Disease: No Hx Human Immunodeficiency Virus (HIV): No (last 07/06 negative) Hx Hepatitis C: No Hx Depression: Yes (anxiety and depression) Hx Suicide Attempt: No Hx Bipolar Disorder: Yes Hx Schizophrenia: No Other Medical History: osteoarthritis knees, back - Patient Surgical History Past Surgical History: Yes Hx Neurologic Surgery: No Hx Cataract Extraction: No Hx Cardiac Surgery: Yes (CABG in 2007, stents x 13) Hx Lung Surgery: No Hx Breast Surgery: No Hx Breast Biopsy: No Hx Abdominal Surgery: Yes (gastric bypass 1999 (lost 100lbs )) Hx Appendectomy: No Hx Cholecystectomy: No Hx Genitourinary Surgery: No Hx Section: No Hx Orthopedic Surgery: Yes (Lt knee replacement 2008 R knee replacement 2009) Other Surgical History: Gastric Bypass/CABG/ Anesthesia Reaction: No - PPD History Previous Implant?: Yes Documented Results: Negative w/proof Implanted On Prior R Admission?: Yes Date: 12/09/15 Results: 0MM PPD to be Administered?: Yes - Reproductive History Patient is a Female of Child Bearing Age (11 -55 yrs old): No (male) Last Menstrual Period: 12/17/15 - Smoking Cessation Smoking history: Never smoked Have you smoked in the past 12 months: No Aproximately how many cigarettes per day: 0 Cigars Per Day: 0 Hx Chewing Tobacco Use: No - Substance & Tx. History Hx Alcohol Use: Yes Hx Substance Use: Yes Substance Use Type: Alcohol, Cocaine Hx Substance Use Treatment: Yes (detox, rehab) - Substances Abused alcohol Route: Oral Frequency: Daily Amount used: 2 pint liquor Age of first use: 35 Date of Last Use: 08/09/17 cocaine Route: Inhalation Frequency: 3-6 times per week Amount used: $50 Age of first use: 35 Date of Last Use: 08/10/17 Family Disease History - Family Disease History Family Disease History: CA: Father (lung ), Mother (brain ), Brother (smokers-lung ca ), Other: Daughter (two - adult) Admission Physical Exam S - Vital Signs Vital Signs: Vital Signs - 24 hr 08/10/17 10:36 Temperature 98 F Pulse Rate 83 Respiratory 20 Rate Blood Pressure 167/90 - Physical General Appearance: Yes: Nourished, Appropriately Dressed, Disheveled, Moderate Distress, Obese, Tremorous, Anxious, Other (poor hygiene) HEENTM: Yes: EOMI, Hearing grossly Normal, Normocephalic, Normal Voice, Pharynx Normal Respiratory: Yes: Normal Breath Sounds, No Respiratory Distress Neck: Yes: No masses,lesions,Nodules, Supple Breast: Yes: Breast Exam Deferred Cardiology: Yes: Regular Rhythm, Regular Rate Abdominal: Yes: Flat, Soft, Protuberent, Surgical Scar Genitourinary: Yes: Frequency Back: Yes: Decreased Range of Motion Musculoskeletal: Yes: Back pain, Joint Stiffness, Muscle Pain Extremities: Yes: Tremors Neurological: Yes: Alert, Normal Mood/Affect, Normal Response Integumentary: Yes: Normal Color, Dry, Warm Lymphatic: Yes: Within Normal Limits - Diagnostic (1) Alcohol dependence with uncomplicated withdrawal Current Visit: Yes Status: Chronic (2) Cocaine dependence Current Visit: Yes Status: Acute (3) Osteoarthritis Current Visit: Yes Status: Acute Qualifiers: Osteoarthritis location: knee Osteoarthritis type: primary Laterality: bilateral Qualified Code(s): M17.0 - Bilateral primary osteoarthritis of knee (4) Obesity Current Visit: Yes Status: Chronic (5) CHF (congestive heart failure) Current Visit: Yes Status: Chronic (6) Hx of CABG Current Visit: Yes Status: Chronic (7) HTN (hypertension) Current Visit: Yes Status: Chronic Qualifiers: Hypertension type: essential hypertension Qualified Code(s): I10 - Essential (primary) hypertension (8) CAD (coronary artery disease) of bypass graft Current Visit: Yes Status: Chronic Qualifiers: [place] vs. transplanted heart: unspecified whether [place] or transplanted heart Associated angina: angina presence unspecified Qualified Code(s): I25.810 - Atherosclerosis of coronary artery bypass graft(s) without angina pectoris (9) History of knee replacement Current Visit: Yes Status: Chronic Qualifiers: Laterality: bilateral Qualified Code(s): Z96.653 - Presence of artificial knee joint, bilateral (10) History of bariatric surgery Current Visit: Yes Status: Acute Cleared for Admission [facility] - Detox or Rehab [facility] Level of Care: Medically Managed Detox Regimen/Protocol: Librium [facility] Breath Alcohol Content Breath Alcohol Content: 0 Urine Drug Screen - Results Drug Screen Negative: No Urine Drug Screen Results: KARTIK-Cocaine, BZO-Benzodiazepines
[2017-08-10] MEDS ORDERED: MAG HYDROX/AL HYDROX/SIMETH 30 ML UNIT-DOSE CUP PO PRN (11:08)
[2017-08-10] MEDS ORDERED: LOPERAMIDE HCL 2 MG CAPSULE PO PRN (11:08)
[2017-08-10] MEDS ORDERED: guaiFENesin/D-METHORPHAN HB 10 ML UNIT-DOSE CUPS PO PRN (11:08)
[2017-08-10] MEDS ORDERED: hydrOXYzine PAMOATE 25 MG CAPSULE (FP) PO PRN (11:08)
[2017-08-10] MEDS ORDERED: ACETAMINOPHEN 325 MG TABLET (FP) PO PRN (11:08)
[2017-08-10] MEDS ORDERED: MENTHOL/PHENOL 1 EACH UD MM PRN (11:08)
[2017-08-10] MEDS ORDERED: MAGNESIUM HYDROX 2400MG/30ML ORAL SUSPENSION 30 ML CUP PO PRN (11:08)
[2017-08-10] MEDS ORDERED: chlordiazePOXIDE HCL 25 MG CAPSULE PO PRN (11:08)
[2017-08-10] MEDS ORDERED: MAGNESIUM CITRATE 300 ML BOTTLE PO PRN (11:08)
[2017-08-10] MEDS ORDERED: P-EPHED 60MG/TRIPROLIDI 2.5MG TABLET PO PRN (11:08)
[2017-08-10] MEDS ORDERED: ALBUTEROL SO4 18 GM HFA INHALER IH PRN (11:10)
[2017-08-10] MEDS ORDERED: NITROGLYCERIN SUBLINGUAL 1/150 0.4 MG TAB SL SCH (11:30)
[2017-08-10] MEDS ORDERED: chlordiazePOXIDE HCL 25 MG CAPSULE PO ONE (11:30)
[2017-08-10] MEDS: CLOPIDOGREL BISULFATE 75 MG TABLET (FP) PO SCH (12:47)
[2017-08-10] MEDS: ASPIRIN 81 MG CHEWABLE TABLETS PO SCH (12:47)
[2017-08-10] MEDS: LOSARTAN POTASSIUM 50 MG TABLET (FP) PO SCH (12:47)
[2017-08-10] MEDS: FUROSEMIDE 40 MG TABLET (FP) PO SCH (12:47)
[2017-08-10] MEDS: ISOSORBIDE MONONITRATE 30 MG TAB.SR.24H (FP) PO SCH (12:48)
[2017-08-10] MEDS: chlordiazePOXIDE HCL 25 MG CAPSULE PO SCH ×2 (17:44→22:29)
[2017-08-10 21:49] LABS: URINE APPEARANCE TURBID; URINE BILIRUBIN NEGATIVE (<2.0 mg/dL); URINE COLOR YELLOW; URINE GLUCOSE (UA) NEGATIVE (NEGATIVE); URINE KETONE NEGATIVE (NEGATIVE); URINE LEUK ESTERASE NEGATIVE (NEGATIVE); URINE NITRITE NEGATIVE (NEGATIVE); URINE PROTEIN NEGATIVE (NEGATIVE); URINE UROBILINOGEN NEGATIVE mg/dL (0.2-1.0)
[2017-08-10] MEDS ORDERED: THIAMINE HCL 100 MG TABLET (FP) PO SCH (22:00)
[2017-08-10] MEDS ORDERED: ATORVASTATIN CA 20 MG TABLET (FP) PO SCH (22:00)
[2017-08-10] MEDS ORDERED: MELATONIN 5 MG TABLETS PO PRN (22:00)
--- NOTE | 2017-08-10 22:25 | EKG ---
Test Reason : Blood Pressure : / mmHG Vent. Rate : 078 BPM Atrial Rate : 078 BPM P-R Int : 166 ms QRS Dur : 092 ms QT Int : 404 ms P-R-T Axes : 044 014 043 degrees QTc Int : 460 ms NORMAL SINUS RHYTHM NORMAL ECG WHEN COMPARED WITH ECG OF 02-SEP-2016 13:09, NO SIGNIFICANT CHANGE WAS FOUND Confirmed by JOSE ANTONIO SMALL MD ([id number]) on 08/10/2017 10:24:47 PM Referred By: Confirmed By:JOSE ANTONIO SMALL MD
[2017-08-10] MEDS: CARVEDILOL 25 MG TABLET (FP) PO SCH (22:30)
[2017-08-11] MEDS: chlordiazePOXIDE HCL 25 MG CAPSULE PO SCH ×2 (05:52→10:15)
[2017-08-11] MEDS ORDERED: PRENATAL VITAMINS W/ FOLIC ACID TABLET (FP) PO SCH (10:00)
[2017-08-11 10:01] LABS: HEMATOCRIT 42.6 % (35.4-49); HEMOGLOBIN 14.3 GM/dL (11.7-16.9); MCHC 33.4 g/dl (32.0-35.9); MEAN CELL VOLUME 89.7 fl (80-96); MEAN PLT VOLUME 10.7 fl (7.5-11.1); PLATELET COUNT 146 K/MM3 (134-434); RBC 4.75 M/mm3 (4.00-5.60); RDW 15.7 % (11.9-15.9)
[2017-08-11 10:14] LABS: ALBUMIN 3.1 g/dl (3.4-5.0); ANION GAP 6 (8-16); BILIRUBIN,TOTAL 0.3 mg/dL (0.2-1.0); BLOOD UREA NITROGEN 15 mg/dL (7-18); CALCIUM 8.2 mg/dL (8.5-10.1); CHLORIDE 107 mmol/L (98-107); CO2 28 mmol/L (21-32); CREATININE 0.8 mg/dL (0.7-1.3); GLUCOSE,RANDOM 109 mg/dL (74-106); POTASSIUM 4.1 mmol/L (3.5-5.1); SGOT/AST 22 U/L (15-37); SGPT/ALT 25 U/L (12-78); SODIUM 141 mmol/L (136-145)
[2017-08-11] MEDS: ASPIRIN 81 MG CHEWABLE TABLETS PO SCH (10:14)
[2017-08-11] MEDS: CLOPIDOGREL BISULFATE 75 MG TABLET (FP) PO SCH (10:14)
[2017-08-11] MEDS: CARVEDILOL 25 MG TABLET (FP) PO SCH (10:14)
[2017-08-11] MEDS: ISOSORBIDE MONONITRATE 30 MG TAB.SR.24H (FP) PO SCH (10:14)
[2017-08-11] MEDS: LOSARTAN POTASSIUM 50 MG TABLET (FP) PO SCH (10:14)
[2017-08-11 10:15] LABS: ALK PHOS 55 U/L (45-117); TOT PROT 6.5 g/dl (6.4-8.2)
[2017-08-11] MEDS: FUROSEMIDE 40 MG TABLET (FP) PO SCH (10:15)
--- NOTE | 2017-08-11 11:57 | CONSULT ---
[facility] Psychiatric Consult - Data Date of interview: 08/11/17 Admission source: Self-referred Identifying data: Mr Isaac is a 62 years old male, father of 2 children, unemployed on SSD, domiciled seeking ddetox treatment for alcohol and cocaine Substance Abuse History: Reports history of alcohol and cocaine use. Refer to addiction counselor's note for further information Medical History: Significant for hypertension, bronchial asthma/COPD, hypercholesterolemia, osteoarthritis of knees and back and a history of multiple surgeries(triple coronary artery bypass graft in 2007, gastric bypass in 1999 and bilateral knee replacement 2007 & 2009. Psychiatric History: Patient is a poor historian claiming that he only sees psychiatrist when he is admitted to this facilty. According to information in EMR, Mr Isaac carries the diagnoses of Biopolar and MDD. He has no history of previous psychiatric hospitalizations. Patient reports past treatment with Seroquel and Trazodone. Reports that he is prescribed Xanx and Klonopin by his primary care physician in [place]. According to pharmacy claims, he filled scripts for Trazadone 100 #30 on 04/16/17, Cymbalta 60 mg #30 on 05/29/17, Zyprexa 5 mg #30 on 06/01/17, Seroquel 50 mg #30 on 07/23/17. He only wants to take Trazadone at this time. Patient denies history of suicide attempts. at present, reports feeling anxious and sleeping poorly Physical/Sexual Abuse/Trauma History: Denies history of sexual, physical and verbal abuse. Additional Comment: Denies criminal history Mental Status Exam - Mental Status Exam Alert and Oriented to: Time, Place ([place]), Person Cognitive Function: Fair Patient Appearance: Well Groomed Mood: Anxious Affect: Appropriate Patient Behavior: Cooperative Speech Pattern: Clear Voice Loudness: Normal Thought Process: Intact, Goal Oriented Thought Disorder: Not Present Hallucinations: Denies Suicidal Ideation: Denies Homicidal Ideation: Denies Insight/Judgement: Poor Sleep: Poorly Appetite: Good Muscle strength/Tone: Normal Gait/Station: Normal Psychiatric Findings - Problem List ([place] 1, 2,3) (1) Bipolar I, most recent episode mixed, severe Current Visit: No Status: Chronic (2) Substance induced mood disorder Current Visit: Yes Status: Acute (3) Substance-induced sleep disorder Current Visit: Yes Status: Acute (4) Alcohol dependence with uncomplicated withdrawal Current Visit: Yes Status: Acute (5) Cocaine dependence Current Visit: Yes Status: Chronic (6) History of bariatric surgery Current Visit: Yes Status: Resolved (7) Osteoarthritis Current Visit: Yes Status: Chronic Qualifiers: Osteoarthritis location: knee Osteoarthritis type: primary Laterality: bilateral Qualified Code(s): M17.0 - Bilateral primary osteoarthritis of knee (8) CAD (coronary artery disease) of bypass graft Current Visit: Yes Status: Chronic Qualifiers: [place] vs. transplanted heart: unspecified whether [place] or transplanted heart Associated angina: angina presence unspecified Qualified Code(s): I25.810 - Atherosclerosis of coronary artery bypass graft(s) without angina pectoris (9) HTN (hypertension) Current Visit: Yes Status: Chronic Qualifiers: Hypertension type: essential hypertension Qualified Code(s): I10 - Essential (primary) hypertension (10) History of knee replacement Current Visit: Yes Status: Chronic Qualifiers: Laterality: bilateral Qualified Code(s): Z96.653 - Presence of artificial knee joint, bilateral (11) Obesity Current Visit: Yes Status: Chronic (12) HLD (hyperlipidemia) Current Visit: No Status: Chronic Qualifiers: Hyperlipidemia type: unspecified Qualified Code(s): E78.5 - Hyperlipidemia , unspecified (13) Chronic bronchitis Current Visit: No Status: Suspected Qualifiers: Chronic bronchitis type: simple Qualified Code(s): J41.0 - Simple chronic bronchitis Comment: VENTOLIN - Initial Treatment Plan Initial Treatment Plan: 1) Start Trazadone 100 mg po HS. 2) Continue inpatient detoxification
[2017-08-11] MEDS ORDERED: TRIMETHOBENZAMIDE HCL 200MG/2ML INJ IM PRN (12:18)
--- NOTE | 2017-08-11 12:21 | PN ---
S CIWA - CIWA Score Nausea/Vomitin Muscle Tremors: 4-Moderate,w/Arms Extend Anxiety: 4-Mod. Anxious/Guarded Agitation: 4-Moderately Restless Paroxysmal Sweats: 3 Orientation: 0-Oriented Tacttile Disturbances: 1-Very Mild Itch/Numbness Auditory Disturbances: 0-None Visual Disturbances: 0-None Headache: 1-Very Mild CIWA-Ar Total Score: 20 BHS Progress Note (SOAP) Subjective: Nausea, sweating, vomited x 3, stomach ache, interrupted sleep, restless legs Objective: 08/11/17 12:18 Last Vital Signs Temp Pulse Resp BP Pulse Ox 96.7 F L 83 18 116/79 08/11/17 09:23 08/11/17 09:23 08/11/17 09:23 08/11/17 09:23 Laboratory Tests 08/10/17 08/11/17 08/11/17 12:06 06:00 06:00 WBC RBC Hgb Hct MCV MCH MCHC RDW Plt Count MPV Sodium 141 Potassium 4.1 Chloride 107 Carbon Dioxide 28 Anion Gap 6 L BUN 15 Creatinine 0.8 Creat Clearance w eGFR > 60 Random Glucose 109 H D Calcium 8.2 L Total Bilirubin 0.3 D AST 22 ALT 25 Alkaline Phosphatase 55 Total Protein 6.5 Albumin 3.1 L Urine Color Yellow Urine Appearance Turbid Urine pH 5.0 Ur Specific [place] 1.027 Urine Protein Negative Urine Glucose (UA) Negative Urine Ketones Negative Urine Blood Negative Urine Nitrite Negative Urine Bilirubin Negative Urine Urobilinogen Negative Ur Leukocyte Esterase Negative RPR Titer Nonreactive HIV 1&2 Antibody Screen HIV P24 Antigen 08/11/17 08/11/17 06:00 06:00 WBC 8.0 RBC 4.75 Hgb 14.3 Hct 42.6 MCV 89.7 MCH 30.0 MCHC 33.4 RDW 15.7 Plt Count 146 MPV 10.7 Sodium Potassium Chloride Carbon Dioxide Anion Gap BUN Creatinine Creat Clearance w eGFR Random Glucose Calcium Total Bilirubin AST ALT Alkaline Phosphatase Total Protein Albumin Urine Color Urine Appearance Urine pH Ur Specific [place] Urine Protein Urine Glucose (UA) Urine Ketones Urine Blood Urine Nitrite Urine Bilirubin Urine Urobilinogen Ur Leukocyte Esterase RPR Titer HIV 1&2 Antibody Screen Negative HIV P24 Antigen Negative Labs reviewed Assessment: 08/11/17 12:19 Withdrawal symptoms Plan: Continue detox Tigan 200mg IM q8hr prn n/v
[2017-08-11 13:11] VITALS: PULSE 78
[2017-08-11 13:21] VITALS: BP 88/59; TEMP 97.8
--- NOTE | 2017-08-11 15:30 | EKG ---
Test Reason : Blood Pressure : / mmHG Vent. Rate : 078 BPM Atrial Rate : 078 BPM P-R Int : 166 ms QRS Dur : 086 ms QT Int : 398 ms P-R-T Axes : 040 005 021 degrees QTc Int : 453 ms NORMAL SINUS RHYTHM INFERIOR INFARCT , AGE UNDETERMINED ABNORMAL ECG WHEN COMPARED WITH ECG OF 10-AUG-2017 13:01, NO SIGNIFICANT CHANGE WAS FOUND Confirmed by JOSE ANTONIO SMALL MD ([id number]) on 08/11/2017 3:29:52 PM Referred By: Confirmed By:JOSE ANTONIO SMALL MD
[2017-08-11] MEDS ORDERED: chlordiazePOXIDE HCL 25 MG CAPSULE PO SCH (17:00)
[2017-08-11] MEDS ORDERED: traZODone HCL 100 MG TABLET (FP) PO SCH (22:00)
[2017-08-12] MEDS ORDERED: chlordiazePOXIDE 5 MG CAPSULE PO SCH (17:00)
[2017-08-13] MEDS ORDERED: chlordiazePOXIDE HCL 10 MG CAPSULE PO SCH (17:00)
--- NOTE | 2017-08-16 11:51 | DS ---
[facility] Detox Discharge Summary Admission Date: 08/10/17 Discharge Date: 08/11/17 - History Present History: Alcohol Dependence, Cocaine Dependence Additional Comments: pateint transferred to [facility] for evaluation of chestain on 08/11 was admitted to return to detox or rehab when medically stable Pertinent Past History: anxiety, depression and insomnia, cabg, CAD, stnet, hld, HTN, obesity - Physical Exam Results Vital Signs: Vital Signs Temperature 97.8 F 08/11/17 13:10 Pulse Rate 78 08/11/17 13:10 Respiratory Rate 18 08/11/17 13:10 Blood Pressure 88/59 08/11/17 13:10 O2 Sat by Pulse Oximetry (%) 95 08/11/17 13:10 Laboratory Tests 08/10/17 08/11/17 08/11/17 12:06 06:00 06:00 WBC RBC Hgb Hct MCV MCH MCHC RDW Plt Count MPV Sodium 141 Potassium 4.1 Chloride 107 Carbon Dioxide 28 Anion Gap 6 L BUN 15 Creatinine 0.8 Creat Clearance w eGFR > 60 Random Glucose 109 H D Calcium 8.2 L Total Bilirubin 0.3 D AST 22 ALT 25 Alkaline Phosphatase 55 Total Protein 6.5 Albumin 3.1 L Urine Color Yellow Urine Appearance Turbid Urine pH 5.0 Ur Specific [place] 1.027 Urine Protein Negative Urine Glucose (UA) Negative Urine Ketones Negative Urine Blood Negative Urine Nitrite Negative Urine Bilirubin Negative Urine Urobilinogen Negative Ur Leukocyte Esterase Negative RPR Titer Nonreactive HIV 1&2 Antibody Screen HIV P24 Antigen 08/11/17 08/11/17 06:00 06:00 WBC 8.0 RBC 4.75 Hgb 14.3 Hct 42.6 MCV 89.7 MCH 30.0 MCHC 33.4 RDW 15.7 Plt Count 146 MPV 10.7 Sodium Potassium Chloride Carbon Dioxide Anion Gap BUN Creatinine Creat Clearance w eGFR Random Glucose Calcium Total Bilirubin AST ALT Alkaline Phosphatase Total Protein Albumin Urine Color Urine Appearance Urine pH Ur Specific [place] Urine Protein Urine Glucose (UA) Urine Ketones Urine Blood Urine Nitrite Urine Bilirubin Urine Urobilinogen Ur Leukocyte Esterase RPR Titer HIV 1&2 Antibody Screen Negative HIV P24 Antigen Negative Pertinent Admission Physical Exam Findings: withdrawal sx, obesity, - Treatment Hospital Course: Detox Protocol Followed Patient has Accepted a Rehab Referral to: Yes, will go after hosptiliazation at [facility] - Medication Discharge Medications: Ambulatory Orders Albuterol Sulfate Inhaler - [Ventolin HFA Inhaler -] 1 puff IH Q4H PRN 08/11/17 Aspirin 81 mg PO DAILY 08/11/17 Atorvastatin Ca [Lipitor] 20 mg PO HS 08/11/17 Clopidogrel Bisulfate [Plavix] 75 mg PO DAILY 08/11/17 Furosemide [Lasix] 40 mg PO DAILY 08/11/17 Guaifenesin Dm [Robitussin Dm -] 10 ml PO Q6H PRN 08/11/17 Isosorbide Mononitrate [Imdur -] 30 mg PO DAILY 08/11/17 Losartan Potassium [Cozaar] 50 mg PO DAILY 08/11/17 Melatonin 5 mg PO HS PRN 08/11/17 - Diagnosis (1) Bipolar II disorder Status: Acute (2) Toe pain, right Status: Acute (3) Alcohol dependence with uncomplicated withdrawal Status: Acute (4) Chest pain Status: Acute (5) Drug-induced mood disorder Status: Acute (6) Insomnia Status: Acute (7) Substance induced mood disorder Status: Acute (8) Bipolar I, most recent episode mixed, severe Status: Chronic (9) CAD (coronary artery disease) of bypass graft Status: Chronic Qualifiers: [place] vs. transplanted heart: unspecified whether [place] or transplanted heart Associated angina: angina presence unspecified Qualified Code(s): I25.810 - Atherosclerosis of coronary artery bypass graft(s) without angina pectoris (10) CHF (congestive heart failure) Status: Chronic (11) Cocaine dependence Status: Chronic (12) FH: bariatric surgery Status: Chronic (13) Gastroesophageal reflux disease Status: Acute (14) HLD (hyperlipidemia) Status: Chronic Qualifiers: Hyperlipidemia type: unspecified Qualified Code(s): E78.5 - Hyperlipidemia , unspecified (15) HTN (hypertension) Status: Chronic Qualifiers: - AMA Did Patient Leave Against Medical Advice: No
== END 2017-08-11 16:00 | disposition short-term general hospital (02) | DRG 897 ==
LOC: YASAS 09:30 → Y3N 11:12
PROVIDERS: ADMIT Internal Medicine; ATTEND Internal Medicine
PROC: HZ2ZZZZ Detoxification Services for Substance Abuse Treatment (ICD-10-PCS; principal; 2017-08-10)
DX: F10.230 Alcohol dependence with withdrawal, uncomplicated (principal); F14.20 Cocaine dependence, uncomplicated; F31.63 Bipolar disorder, current episode mixed, severe, without psychotic features; F19.282 Other psychoactive substance dependence with psychoactive substance-induced sleep disorder; Z68.41 Body mass index [BMI] 40.0-44.9, adult; F19.24 Other psychoactive substance dependence with psychoactive substance-induced mood disorder; I25.10 Atherosclerotic heart disease of native coronary artery without angina pectoris; I11.0 Hypertensive heart disease with heart failure; Z95.1 Presence of aortocoronary bypass graft; Z95.5 Presence of coronary angioplasty implant and graft; M17.0 Bilateral primary osteoarthritis of knee; J41.0 Simple chronic bronchitis; E78.00 Pure hypercholesterolemia, unspecified; E66.9 Obesity, unspecified; Z96.653 Presence of artificial knee joint, bilateral; Z98.84 Bariatric surgery status; Z91.012 Allergy to eggs
CPT/HCPCS: 36415; 80053; 81003; 85027; 86593; 87389; 93005; 93010

== ENCOUNTER 2017-08-11 13:55 | Inpatient (IN) | payer OTHER ==
[2017-08-11 14:06] VITALS: BMI 39.9
--- NOTE | 2017-08-11 14:09 | PDOC ---
History of Present Illness - General Chief Complaint: Chest Pain Stated Complaint: CHEST PAIN Time Seen by Provider: 08/11/17 14:03 - History of Present Illness Initial Comments: 08/11/17 14:24 The patient is a 62 year old male with a history of HTN, CAD, OK, CABG, CHF, HLD , Alcohol abuse, Cocaine abuse, who presents from [facility] for evaluation of chest pain and SOB. The patient reports onset of 8/10 chest pain that he describes as a pressure beginning 50 minutes prior to presentation with associated SOB prompting his presentation to the ED for evaluation. He states that his symptoms are similar to his prior symptoms leading to his CABG. He states that his last use of alcohol and cacaine was 2 days ago. He reports some nausea and non-bilious, non-bloody vomiting as well. He received a nitro at [facility] and was noted to be hypotensive to [address] and iv fluids were started. He otherwise denies fevers, chills, cough, abdominal pain , or changes with urination or bowel movements. Past History - Past Medical History Allergies/Adverse Reactions: Allergies Allergy/AdvReac Type Severity Reaction Status Date / Time egg Allergy Intermediate Rash Verified 08/11/17 14:05 No Known Drug Allergies Allergy Verified 08/11/17 14:05 Home Medications: Ambulatory Orders Acetaminophen [Tylenol] 650 mg PO Q4H PRN 08/11/17 Albuterol Sulfate Inhaler - [Ventolin Hfa Inhaler -] 1 puff IH Q4H PRN 08/11/17 Aspirin 81 mg PO DAILY 08/11/17 Atorvastatin Ca [Lipitor] 20 mg PO HS 08/11/17 Chlordiazepoxide [Librium -] 0 mg PO DAILY 08/11/17 Clopidogrel Bisulfate [Plavix] 75 mg PO DAILY 08/11/17 Furosemide [Lasix] 40 mg PO DAILY 08/11/17 Guaifenesin Dm [Robitussin Dm -] 10 ml PO Q6H PRN 08/11/17 Isosorbide Mononitrate [Imdur -] 30 mg PO DAILY 08/11/17 Loperamide HCl [Imodium -] 4 mg PO Q6H PRN 08/11/17 Losartan Potassium [Cozaar] 50 mg PO DAILY 08/11/17 Mag Hydrox/Al Hydrox/Simeth [Mylanta Oral Suspension -] 30 ml PO Q6H PRN Magnesium Citrate [Citroma -] 300 ml PO Q48H PRN 08/11/17 Magnesium Hydrox 2400MG/30Ml [Milk of Magnesia -] 30 ml PO DAILY PRN 08/11/17 Melatonin 5 mg PO HS PRN 08/11/17 Menthol/Phenol [Cepastat Lozenge -] 1 each MM Q4H PRN 08/11/17 Nitroglycerin [Nitrostat] 0.4 mg SL PRN PRN 08/11/17 P-Ephed 60Mg/Triprolidi 2.5MG [Actifed -] 1 combo PO TID PRN 08/11/17 Vitamins (Sjr) - 1 tab PO DAILY 08/11/17 Thiamine HCl [Vitamin B1] 100 mg PO HS 08/11/17 Trimethobenzamide HCl [Tigan] 200 mg IM Q8H PRN 08/11/17 hydrOXYzine PAMOATE [Vistaril -] 25 mg PO Q4H PRN 08/11/17 traZODone HCL [Desyrel -] 100 mg PO HS 08/11/17 Anemia: No Asthma: No Cancer: No Cardiac Disorders: Yes (s/p trple by pass surgery in 2007,agioplast with stent in 2008) CVA: No COPD: No CHF: Yes (lasix 40mg ) Dementia: No Diabetes: No GI Disorders: No Disorders: No HTN: Yes Hypercholesterolemia: Yes Kidney Stones: No Liver Disease: No Seizures: No Thyroid Disease: No Other medical history: ALCOHOL AND COCAINE ADDCITION. - Surgical History Abdominal Surgery: Yes (gastric bypass 1999 (lost 100lbs )) Appendectomy: No Cardiac Surgery: Yes (CABG in 2007, stents x 16) Cholecystectomy: No Lung Surgery: No Neurologic Surgery: No Orthopedic Surgery: Yes (Lt knee replacement 2008 R knee replacement 2009) - Reproductive History Testicular Surgery: No - Immunization History Immunization Up to Date: Yes - Suicide/Smoking/Psychosocial Hx Smoking Status: No Smoking History: Never smoked Have you smoked in the past 12 months: No Number of Cigarettes Smoked Daily: 0 Cigars Per Day: 0 'Breaking Loose' booklet given: 07/13/14 Hx Alcohol Use: Yes Drug/Substance Use Hx: Yes (cocaine.) Substance Use Type: Alcohol, Cocaine Hx Substance Use Treatment: Yes (detox, rehab) Review of Systems - Review of Systems Comments:: 08/11/17 14:31 Constitutional: Fatigue. No fevers, chills, malaise HEENT: No Rhinorrhea, nasal congestion, visual changes Cardiovascular: Chest pain. No syncope, palpitations, lightheadedness Respiratory: SOB. No Cough, Hemoptysis, Gastrointestinal: Nausea, Vomiting. No Abdominal pain, Constipation, Diarrhea, Melena Genitourinary: No Dysuria, Frequency, Urgency, Hesitancy, Hematuria, Flank pain Musculoskeletal: No Myalgia, arthralgia Skin: No rashes, itching, bruising, pallor Neurologic: No Headache, Dizziness, Numbness, Weakness, or Tingling Psychiatric: No Hallucinations. No SI or HI *Physical Exam - Vital Signs Last Vital Signs Temp Pulse Resp BP Pulse Ox 98.4 F 74 22 98/61 95 08/11/17 14:03 08/11/17 14:03 08/11/17 14:03 08/11/17 14:03 08/11/17 14:03 - Physical Exam Comments: 08/11/17 14:32 General Appearance: Nourished. Somulent but arousable. No Apparent Distress HEENT: EOMI, HECTOR. No Pharyngeal Erythema, Tonsillar Exudate, Tonsillar Erythema Neck: No Cervical Lymphadenopathy Respiratory/Chest: Lungs Clear, Normal Breath Sounds. No Crackles, Rales, Rhonchi, Wheezing Cardiovascular: Regular Rhythm, Regular Rate. No Murmur, Gallops, Rubs Gastrointestinal/Abdominal: Normal Bowel Sounds, Soft. No Guarding, Rebound, Tenderness Musculoskeletal: No CVA Tenderness Extremity: 1+ pitting edema in the lower extremities bilaterally. Normal Capillary Refill Integumentary: Normal Color, Dry, Warm Neurologic: Fully Oriented, Alert, Normal Mood/Affect, Normal Response, Heart Score/ECG Review #1 ECG reviewed & interpreted by me at: 16:05 General ECG Interpretation: Sinus Rhythm, Normal Rate, Normal Intervals, No acute ischemic changes Compared to previous ECG there are: No significant change ED Treatment Course - LABORATORY CBC & Chemistry Diagram: 08/11/17 14:40 08/11/17 14:40 Medical Decision Making - Medical Decision Making 08/11/17 14:36 The patient is a 62 year old male with a history of HTN, CAD, OK, CABG, CHF, HLD , Alcohol abuse, Cocaine abuse, who presents from [facility] for evaluation of chest pain and SOB. Differential includes but is not limited to: ACS, CHF, Arrhythmia, Pneumonia, infectious, metabolic derangement. Given the patient's significant cardiac history, we will obtain a cbc, cmp, troponin, bnp , chest plain film and ekg to evaluate further for possible etiologies. We will continue to monitor and reassess in the meantime. 08/11/17 16:02 CBC, cmp, troponin, bnp are unremarkable. Chest plain film is unremarkable as read by our radiologist. However, given the patient's significant cardiac history, we believe he warrants observation admission for further monitoring and cardiology consultation. We discussed the case with the hospitalist team who accepted the patient for admission. *DC/Admit/Observation/Transfer Diagnosis at time of Disposition: Chest pain Qualifiers: Chest pain type: chest pain on breathing Qualified Code(s): R07.1 - Chest pain on breathing - Discharge Dispostion Condition at time of disposition: Stable Admit: Yes - Referrals - Patient Instructions - Post Discharge Activity
--- NOTE | 2017-08-11 14:27 | PDOC ---
Attending Attestation - Resident Resident Name: Eder Zhao - ED Attending Attestation I have performed the following: I have examined & evaluated the patient, The case was reviewed & discussed with the resident, I agree w/resident's findings & plan, Exceptions are as noted - Physicial Exam PE: 08/11/17 14:22 GENERAL: Awake, in no acute distress, sleepy but arousable HEAD: No signs of trauma EYES: PERRLA, EOMI, sclera anicteric, conjunctiva clear ENT: Auricles normal inspection, hearing grossly normal, nares patent, oropharynx clear without exudates. Moist mucosa NECK: Normal ROM, supple, no lymphadenopathy, JVD, or masses LUNGS: Breath sounds equal, clear to auscultation bilaterally. No wheezes, and no crackles HEART: Regular rate and rhythm, normal S1 and S2, no murmurs, rubs or gallops. Large strenal midline scar c/d/i ABDOMEN: Soft, nontender, normoactive bowel sounds. No guarding, no rebound. No masses. Large midline abd scar c/d/i EXTREMITIES: Normal range of motion, no edema. No clubbing or cyanosis. No cords, erythema, or tenderness NEUROLOGICAL: Normal speech, cranial nerves intact, negative pronator drift, 5/ 5 strength in all 4 extremities, normal sensation to light touch in all 4 extremities SKIN: Warm, Dry, normal turgor, no rashes or lesions noted. - Medical Decision Making 08/11/17 14:28 62-year-old male with multiple medical problems including previous cardiac bypass presents with crushing chest pain. Patient initially hypotensive in the emergency department, but was given nitroglycerin en route. Other vitals otherwise unremarkable. Patient will need admission for high risk chest pain. <Harmeet Bonilla - Last Filed: 08/11/17 14:21> - HPI HPI: 08/11/17 15:47 The patient is a 62 year old male with past medical history of COPD, HTN, CHF, HLD, hypercholesterolemia, CAD by bypass graft, osteoarthritis, and chronic obesity presents to the emergency department from [facility] complaining of chest pain. The patient reports the pain is localized to the mid- chest wall which started 45 minutes prior to coming to the ED. The patient rates the pain 8/10 in severity, and states he took a baby aspirin for the pain. The patient reports the pain is non-radiating The patient states associated symptoms of SOB and states feeling tired. The patient checked into the detox program at [facility] in [place] 2 days ago. The patient denies wheezing, coughing, headache and dizziness. Denies fever, chills, nausea, vomit, diarrhea and constipation. Denies dysuria, frequency, urgency and hematuria. Allergies: Eggs. Past surgical history: CABG (2007), cardiac stents, bilateral total knee replacement, gastric bypass (1999), Lt knee replacement 2008 R knee replacement 2009 Social History: The patient denies any history of smoking. The patient states reports the use of alcohol, 2 pints of liquor daily since the age of 35. The patient reports inhalation of Cocaine 3-6X a week. The patient reports the use of any alcohol or recreational drug was 2 days ago. The patient reports the last use of any recreational drug was 2 days ago. - Medical Decision Making 08/11/17 15:47 Documentation prepared by Eve Stapleton, acting as biomedical engineering professor for Harmeet Bonilla MD. <Eve Stapleotn - Last Filed: 08/11/17 15:48> Heart Score/ECG Review #1 08/11/17 14:24 Twelve-lead EKG was performed and reviewed by me. Normal sinus rhythm, rate 66. Normal axis and intervals. Large Q-wave in lead 3. No ST elevations or T-wave inversions. <Harmeet Bonilla - Last Filed: 08/11/17 14:21>
[2017-08-11 14:50] LABS: HEMATOCRIT 40.3 % (35.4-49); HEMOGLOBIN 13.3 GM/dL (11.7-16.9); LYMPH % 17.8 % (8-40); MCH 29.7 pg (25.7-33.7); MEAN CELL VOLUME 90.1 fl (80-96); MEAN PLT VOLUME 9.6 fl (7.5-11.1); MONO % 10.4 % (3.8-10.2); NEUT % 67.8 % (42.8-82.8); PLATELET COUNT 166 K/MM3 (134-434); RBC 4.48 M/mm3 (4.00-5.60); RDW 15.7 % (11.9-15.9); WHITE BLOOD COUNT 7.8 K/mm3 (4.0-10.0)
[2017-08-11 15:11] LABS: INR 1.04 (0.82-1.09); PROTHROMBIN TIME (PATIENT) 11.8 SEC (9.98-11.88)
[2017-08-11 15:14] LABS: ACTIVATED PTT 32.7 SECONDS (26.9-34.4)
[2017-08-11 15:19] LABS: ALBUMIN 3.1 g/dl (3.4-5.0); ANION GAP 8 (8-16); BILIRUBIN,TOTAL 0.4 mg/dL (0.2-1.0); BLOOD UREA NITROGEN 16 mg/dL (7-18); CALCIUM 7.9 mg/dL (8.5-10.1); CHLORIDE 109 mmol/L (98-107); CO2 29 mmol/L (21-32); GLUCOSE,RANDOM 88 mg/dL (74-106); POTASSIUM 4.5 mmol/L (3.5-5.1); SGOT/AST 22 U/L (15-37); SGPT/ALT 24 U/L (12-78); SODIUM 146 mmol/L (136-145); TOT PROT 6.3 g/dl (6.4-8.2)
[2017-08-11 15:22] LABS: ALK PHOS 54 U/L (45-117); N-TERMINAL BNP 55.92 pg/ml (5-125)
--- NOTE | 2017-08-11 15:31 | EKG ---
Test Reason : Blood Pressure : / mmHG Vent. Rate : 066 BPM Atrial Rate : 066 BPM P-R Int : 176 ms QRS Dur : 088 ms QT Int : 414 ms P-R-T Axes : 028 000 030 degrees QTc Int : 434 ms NORMAL SINUS RHYTHM INFERIOR INFARCT (CITED ON OR BEFORE 11-AUG-2017) ABNORMAL ECG WHEN COMPARED WITH ECG OF 11-AUG-2017 12:52, NO SIGNIFICANT CHANGE WAS FOUND Confirmed by JOSE ANTONIO SMALL MD ([id number]) on 08/11/2017 3:31:27 PM Referred By: Confirmed By:JOSE ANTONIO SMALL MD
--- NOTE | 2017-08-11 16:01 | HP ---
CHIEF COMPLAINT: chest pain and hypotension PCP: None HISTORY OF PRESENT ILLNESS: Mr. Isaac is a 62 year old male with a significant past medical history of hypertension, CAD, CT, CABG with stents, CHF, HLD, ETOH abuse, cocaine abuse. He was in detox at [facility] for two days and comes to [place] ER for chest pain and worsening shortness of breath. Patient has new onset midsternal "pressure like" chest pain that does not radiate but renders him short of breath. Chest pain does not radiate. He is concerned that this pain is the same as the one he had before prior to his CABG. He reports some nausea on exam , and vomited twice earlier prior to admission. At [facility] he was noted to have a low BP and was given an IVF bolus. He denies any other discomfort, denies headache, cough or abdominal pain. ER course was notable for: (1) NA 146, chol 109 (2) trop neg (3) Social History: Smoking: n/a Alcohol: at [facility] for detox Drugs: at [facility] for detox Family History: Allergies egg Allergy (Intermediate, Verified 08/11/17 14:05) Rash No Known Drug Allergies Allergy (Verified 08/11/17 14:05) HOME MEDICATIONS: Home Medications Medication Instructions Recorded Acetaminophen [Tylenol] 650 mg PO Q4H PRN 08/11/17 Albuterol Sulfate Inhaler - 1 puff IH Q4H PRN 08/11/17 [Ventolin Hfa Inhaler -] Aspirin 81 mg PO DAILY 08/11/17 Atorvastatin Ca [Lipitor] 20 mg PO HS 08/11/17 Chlordiazepoxide [Librium -] 0 mg PO DAILY 08/11/17 Clopidogrel Bisulfate [Plavix] 75 mg PO DAILY 08/11/17 Furosemide [Lasix] 40 mg PO DAILY 08/11/17 Guaifenesin Dm [Robitussin Dm -] 10 ml PO Q6H PRN 08/11/17 Isosorbide Mononitrate [Imdur -] 30 mg PO DAILY 08/11/17 Loperamide HCl [Imodium -] 4 mg PO Q6H PRN 08/11/17 Losartan Potassium [Cozaar] 50 mg PO DAILY 08/11/17 Mag Hydrox/Al Hydrox/Simeth 30 ml PO Q6H PRN 08/11/17 [Mylanta Oral Suspension -] Magnesium Citrate [Citroma -] 300 ml PO Q48H PRN 08/11/17 Magnesium Hydrox 2400MG/30Ml [Milk 30 ml PO DAILY PRN 08/11/17 of Magnesia -] Melatonin 5 mg PO HS PRN 08/11/17 Menthol/Phenol [Cepastat Lozenge -] 1 each MM Q4H PRN 08/11/17 Nitroglycerin [Nitrostat] 0.4 mg SL PRN PRN 08/11/17 P-Ephed 60Mg/Triprolidi 2.5MG 1 combo PO TID PRN 08/11/17 [Actifed -] Vitamins (Sjr) - 1 tab PO DAILY 08/11/17 Thiamine HCl [Vitamin B1] 100 mg PO HS 08/11/17 Trimethobenzamide HCl [Tigan] 200 mg IM Q8H PRN 08/11/17 hydrOXYzine PAMOATE [Vistaril -] 25 mg PO Q4H PRN 08/11/17 traZODone HCL [Desyrel -] 100 mg PO HS 08/11/17 PHYSICAL EXAMINATION Vital Signs - 24 hr 08/11/17 08/11/17 14:03 14:08 Temperature 98.4 F Pulse Rate 74 74 Respiratory 22 Rate Blood Pressure 98/61 O2 Sat by Pulse 95 95 Oximetry (%) GENERAL: Awake, alert, and fully oriented, in no acute distress. HEAD: Normal with no signs of trauma. EYES: Pupils equal, round and reactive to light, extraocular movements intact, sclera anicteric, conjunctiva clear. No lid lag. EARS, NOSE, THROAT: Ears normal, nares patent, oropharynx clear without exudates. Moist mucous membranes. NECK: Normal range of motion, supple without lymphadenopathy, JVD, or masses. LUNGS: Breath sounds equal, diminished bilaterally HEART: Regular rate and rhythm, normal S1 and S2 without murmur, rub or gallop. ABDOMEN: obese soft abdomen MUSCULOSKELETAL: Normal range of motion at all joints. No bony deformities or tenderness. No CVA tenderness. LOWER EXTREMITIES: trace peripheral edema. NEUROLOGICAL: Normal speech. Normal gait. PSYCHIATRIC: Cooperative. Good eye contact. Appropriate mood and affect. SKIN: Warm, dry, normal turgor, no rashes or lesions noted, normal capillary refill. Laboratory Results - last 24 hr 08/11/17 08/11/17 08/11/17 14:40 14:40 14:40 WBC 7.8 RBC 4.48 Hgb 13.3 Hct 40.3 MCV 90.1 MCH 29.7 MCHC 33.0 RDW 15.7 Plt Count 166 MPV 9.6 D Neutrophils % 67.8 D Lymphocytes % 17.8 D Monocytes % 10.4 H D Eosinophils % 3.0 Basophils % 1.0 PT with INR 11.80 INR 1.04 PTT (Actin FS) 32.7 Sodium 146 H Potassium 4.5 Chloride 109 H Carbon Dioxide 29 Anion Gap 8 BUN 16 Creatinine 1.0 D Creat Clearance w eGFR > 60 Random Glucose 88 Calcium 7.9 L Total Bilirubin 0.4 D AST 22 ALT 24 Alkaline Phosphatase 54 Creatine Kinase 166 Troponin I < 0.02 B-Natriuretic Peptide 55.92 Total Protein 6.3 L Albumin 3.1 L ASSESSMENT/PLAN: Mr. Isaac is a 62 year old male with a significant past medical history of hypertension, CAD, CT, CABG with stents, CHF, HLD, ETOH abuse, cocaine abuse. He was in detox at [facility] for two days and comes to [place] ER for chest pain and worsening shortness of breath. Patient has new onset midsternal "pressure like" chest pain that does not radiate but renders him short of breath. Chest pain does not radiate. He is concerned that this pain is the same as the one he had before prior to his CABG. He reports some nausea on exam , and vomited twice earlier prior to admission. At [facility] he was noted to have a low BP and was given an IVF bolus. He denies any other discomfort, denies headache, cough or abdominal pain. Card: Rule out ACS Trend trops Monitor on tele Cardiology consult hypertension, now with hypertension parameters added to cardiac meds CAD, CT, CABG with stents On Plavix CHF On Lasix Monitor intake and output HLD, chronic Lipid panel in a.m Psyche: ETOH abuse, cocaine abuse Continue meds as per [facility] physician FBere Fluids: tolerating PO Electrolytes: monitor Nutrition: diabetic Hospitalist Screening - Colonoscopy Questionnaire Colonoscopy Questionnaire: Colonoscopy Questionnaire
--- NOTE | 2017-08-11 16:56 | CON.CARD ---
Consult Consult Specialty:: Cardiology - History of Present Illness History of Present Illness: The patient is a 62 year old male with a history of HTN, CAD, [place], CABG, CHF, HLD , Alcohol abuse, Cocaine abuse, who presents from [facility] for evaluation of chest pain and SOB. The patient reports onset of 8/10 chest pain that he describes as a pressure beginning 50 minutes prior to presentation with associated SOB prompting his presentation to the ED for evaluation. He states that his symptoms are similar to his prior symptoms leading to his CABG. He states that his last use of alcohol and cacaine was 2 days ago. He reports some nausea and non-bilious, non-bloody vomiting as well. He received a nitro at [facility] and was noted to be hypotensive to [address] and iv fluids were started. He otherwise denies fevers, chills, cough, abdominal pain , or changes with urination or bowel movements. - History Source History Provided By: Patient, Medical Record - Past Medical History ACCOUNTING COORDINATOR: Yes: Syncope Cardio/Vascular: Yes: CAD (16 stents last one 3 months ago), CHF, HTN, Hyperlipdemia Psych: Yes: Addictions - Past Surgical History Past Surgical History: Yes: CABG, Stent - Alcohol/Substance Use Hx Alcohol Use: Yes History of Substance Use: reports: Cocaine - Smoking History Smoking history: Never smoked Have you smoked in the past 12 months: No Aproximately how many cigarettes per day: 0 - Social History ADL: Support Services History of Recent Travel: No Home Medications - Allergies Allergies/Adverse Reactions: Allergies Allergy/AdvReac Type Severity Reaction Status Date / Time egg Allergy Intermediate Rash Verified 08/11/17 14:05 No Known Drug Allergies Allergy Verified 08/11/17 14:05 - Home Medications Home Medications: Ambulatory Orders Acetaminophen [Tylenol] 650 mg PO Q4H PRN 08/11/17 Albuterol Sulfate Inhaler - [Ventolin Hfa Inhaler -] 1 puff IH Q4H PRN 08/11/17 Aspirin 81 mg PO DAILY 08/11/17 Atorvastatin Ca [Lipitor] 20 mg PO HS 08/11/17 Chlordiazepoxide [Librium -] 0 mg PO DAILY 08/11/17 Clopidogrel Bisulfate [Plavix] 75 mg PO DAILY 08/11/17 Furosemide [Lasix] 40 mg PO DAILY 08/11/17 Guaifenesin Dm [Robitussin Dm -] 10 ml PO Q6H PRN 08/11/17 Isosorbide Mononitrate [Imdur -] 30 mg PO DAILY 08/11/17 Loperamide HCl [Imodium -] 4 mg PO Q6H PRN 08/11/17 Losartan Potassium [Cozaar] 50 mg PO DAILY 08/11/17 Mag Hydrox/Al Hydrox/Simeth [Mylanta Oral Suspension -] 30 ml PO Q6H PRN Magnesium Citrate [Citroma -] 300 ml PO Q48H PRN 08/11/17 Magnesium Hydrox 2400MG/30Ml [Milk of Magnesia -] 30 ml PO DAILY PRN 08/11/17 Melatonin 5 mg PO HS PRN 08/11/17 Menthol/Phenol [Cepastat Lozenge -] 1 each MM Q4H PRN 08/11/17 Nitroglycerin [Nitrostat] 0.4 mg SL PRN PRN 08/11/17 P-Ephed 60Mg/Triprolidi 2.5MG [Actifed -] 1 combo PO TID PRN 08/11/17 Vitamins (Sjr) - 1 tab PO DAILY 08/11/17 Thiamine HCl [Vitamin B1] 100 mg PO HS 08/11/17 Trimethobenzamide HCl [Tigan] 200 mg IM Q8H PRN 08/11/17 hydrOXYzine PAMOATE [Vistaril -] 25 mg PO Q4H PRN 08/11/17 traZODone HCL [Desyrel -] 100 mg PO HS 08/11/17 Family Disease History - Family Disease History Family Disease History: CA: Father (lung ), Mother (brain ), Brother (smokers-lung ca ), Other: Daughter (two - adult) Review of Systems - Review of Systems Constitutional: reports: No Symptoms Eyes: reports: No Symptoms HENT: reports: No Symptoms Neck: reports: No Symptoms Cardiovascular: reports: Chest Pain Gastrointestinal: reports: No Symptoms Genitourinary: reports: No Symptoms Breasts: reports: No Symptoms Reported Musculoskeletal: reports: No Symptoms Integumentary: reports: No Symptoms Neurological: reports: No Symptoms Endocrine: reports: No Symptoms Hematology/Lymphatic: reports: No Symptoms Psychiatric: reports: No Symptoms Vital Signs: Vital Signs Temperature 98.4 F 08/11/17 14:03 Pulse Rate 74 08/11/17 14:08 Respiratory Rate 22 08/11/17 14:03 Blood Pressure 98/61 08/11/17 14:03 O2 Sat by Pulse Oximetry (%) 95 08/11/17 14:08 Constitutional: Yes: Well Nourished, No Distress, Calm Eyes: Yes: WNL, Conjunctiva Clear, EOM Intact HENT: Yes: WNL, Atraumatic, Normocephalic Neck: Yes: WNL, Supple, Trachea Midline Respiratory: Yes: WNL, Regular, CTA Bilaterally Gastrointestinal: Yes: WNL, Normal Bowel Sounds Renal/: Yes: WNL Cardiovascular: Yes: WNL, Regular Rate and Rhythm Heart Sounds: Yes: S1, S2 Musculoskeletal: Yes: WNL Extremities: Yes: WNL Integumentary: Yes: WNL Neurological: Yes: WNL, Alert, Oriented ...Motor Strength: WNL Psychiatric: Yes: WNL, Alert, Oriented - Other Data Labs, Other Data: CBC, BMP 08/11/17 14:40 08/11/17 14:40 INR, PTT INR 1.04 (0.82-1.09) 08/11/17 14:40 Troponin, BNP 08/11/17 14:40 Troponin I < 0.02 B-Natriuretic Peptide 55.92 Troponin, BNP 08/11/17 14:40 Troponin I < 0.02 B-Natriuretic Peptide 55.92 Imaging - Results Chest X-ray: Image Reviewed (cm no i/e) EKG: Image Reviewed (sr old iw mi) Problem List - Problems (1) Alcohol dependence with uncomplicated withdrawal Code(s): F10.230 - ALCOHOL DEPENDENCE WITH WITHDRAWAL, UNCOMPLICATED (2) Chest pain Code(s): R07.9 - CHEST PAIN, UNSPECIFIED Qualifiers: Chest pain type: chest pain on breathing Qualified Code(s): R07.1 - Chest pain on breathing (3) Substance induced mood disorder Code(s): F19.94 - OTH PSYCHOACTIVE SUBSTANCE USE, UNSP W MOOD DISORDER (4) Substance-induced sleep disorder Code(s): F19.982 - OTH PSYCHOACTIVE SUBSTANCE USE, UNSP W SLEEP DISORDER (5) Asthma Code(s): J45.909 - UNSPECIFIED ASTHMA, UNCOMPLICATED (6) CAD (coronary artery disease) of bypass graft Code(s): I25.810 - ATHEROSCLEROSIS OF CABG W/O ANGINA PECTORIS Qualifiers: [place] vs. transplanted heart: unspecified whether [place] or transplanted heart Associated angina: angina presence unspecified Qualified Code(s): I25.810 - Atherosclerosis of coronary artery bypass graft(s) without angina pectoris (7) CHF (congestive heart failure) Code(s): I50.9 - HEART FAILURE, UNSPECIFIED (8) Cocaine dependence Code(s): F14.20 - COCAINE DEPENDENCE, UNCOMPLICATED (9) HTN (hypertension) Code(s): I10 - ESSENTIAL (PRIMARY) HYPERTENSION Qualifiers: Hypertension type: essential hypertension Qualified Code(s): I10 - Essential (primary) hypertension (10) History of knee replacement Code(s): Z96.659 - PRESENCE OF UNSPECIFIED ARTIFICIAL KNEE JOINT Qualifiers: Laterality: bilateral Qualified Code(s): Z96.653 - Presence of artificial knee joint, bilateral (11) Hx of CABG Code(s): Z95.1 - PRESENCE OF AORTOCORONARY BYPASS GRAFT (12) Obesity Code(s): E66.9 - OBESITY, UNSPECIFIED (13) Osteoarthritis Code(s): M19.90 - UNSPECIFIED OSTEOARTHRITIS, UNSPECIFIED SITE Qualifiers: Osteoarthritis location: knee Osteoarthritis type: primary Laterality: bilateral Qualified Code(s): M17.0 - Bilateral primary osteoarthritis of knee (14) History of bariatric surgery Code(s): Z98.84 - BARIATRIC SURGERY STATUS (15) Sedative dependence Code(s): F13.20 - SEDATIVE, HYPNOTIC OR ANXIOLYTIC DEPENDENCE, UNCOMPLICATED (16) Alcohol dependence Code(s): F10.20 - ALCOHOL DEPENDENCE, UNCOMPLICATED Qualifiers: Substance use status: uncomplicated Qualified Code(s): F10.20 - Alcohol dependence, uncomplicated (17) Alcohol dependence, episodic drinking behavior Code(s): F10.20 - ALCOHOL DEPENDENCE, UNCOMPLICATED (18) Anxiety and depression Code(s): F41.9 - ANXIETY DISORDER, UNSPECIFIED; F32.9 - MAJOR DEPRESSIVE DISORDER, SINGLE EPISODE, UNSPECIFIED (19) Chest wall pain Code(s): R07.89 - OTHER CHEST PAIN (20) Cocaine abuse Code(s): F14.10 - COCAINE ABUSE, UNCOMPLICATED (21) Drug-induced mood disorder Code(s): F19.94 - OTH PSYCHOACTIVE SUBSTANCE USE, UNSP W MOOD DISORDER (22) Insomnia Code(s): G47.00 - INSOMNIA, UNSPECIFIED (23) Syncope and collapse Code(s): R55 - SYNCOPE AND COLLAPSE (24) Bipolar I, most recent episode mixed, severe Code(s): F31.63 - BIPOLAR DISORD, CRNT EPSD MIXED, SEVERE, W/O PSYCH FEATURES (25) FH: bariatric surgery Code(s): Z84.89 - FAMILY HISTORY OF OTHER SPECIFIED CONDITIONS (26) Gastroesophageal reflux disease Code(s): K21.9 - GASTRO-ESOPHAGEAL REFLUX DISEASE WITHOUT ESOPHAGITIS (27) HLD (hyperlipidemia) Code(s): E78.5 - HYPERLIPIDEMIA, UNSPECIFIED Qualifiers: Hyperlipidemia type: unspecified Qualified Code(s): E78.5 - Hyperlipidemia , unspecified (28) S/P angioplasty with stent Code(s): Z95.9 - PRESENCE OF CARDIAC AND VASCULAR IMPLANT AND GRAFT, UNSP (29) Stented coronary artery Code(s): Z95.5 - PRESENCE OF CORONARY ANGIOPLASTY IMPLANT AND GRAFT (30) Use of cane as ambulatory aid Code(s): R26.2 - DIFFICULTY IN WALKING, NOT ELSEWHERE CLASSIFIED (32) Chronic bronchitis Code(s): J42 - UNSPECIFIED CHRONIC BRONCHITIS Qualifiers: Chronic bronchitis type: simple Qualified Code(s): J41.0 - Simple chronic bronchitis Assessment/Plan ASHD s/p 16 stents last one 3 months ago Mandaen Julio Walker s/p cabg polysubstance abuse htn hlp old [place] copd Plan keep ldl below 70 ASA /Plavix hold BB due to cocaine Detox r/o mi echo MIBI st when stable
[2017-08-11] MEDS ORDERED: ACETAMINOPHEN 325 MG TABLET (FP) PO PRN (17:26)
[2017-08-11] MEDS ORDERED: NITROGLYCERIN SUBLINGUAL 1/150 0.4 MG TAB SL PRN (17:26)
[2017-08-11] MEDS ORDERED: ALBUTEROL SO4 2.5/IPRATROPIUM 0.5 INH SOL 3 ML VIAL.NEB. NEB ONE (18:35)
[2017-08-11] MEDS ORDERED: ALBUTEROL SO4 2.5/IPRATROPIUM 0.5 INH SOL 3 ML VIAL.NEB. NEB PRN (18:36)
[2017-08-11] MEDS ORDERED: ACETAMINOPHEN 325 MG TABLET (FP) PO ONE (18:45)
[2017-08-11] MEDS: ATORVASTATIN CA 20 MG TABLET (FP) PO SCH (21:15)
[2017-08-11] MEDS: THIAMINE HCL 100 MG TABLET (FP) PO SCH (21:15)
[2017-08-11] MEDS: traZODone HCL 50 MG TABLET (FP) PO SCH (21:15)
[2017-08-11] MEDS ORDERED: MELATONIN 5 MG TABLETS PO PRN (22:00)
[2017-08-12] MEDS ORDERED: chlordiazePOXIDE HCL 25 MG CAPSULE PO PRN (08:45)
[2017-08-12 08:50] LABS: ALBUMIN 3.1 g/dl (3.4-5.0); ANION GAP 4 (8-16); BILIRUBIN,TOTAL 0.4 mg/dL (0.2-1.0); BLOOD UREA NITROGEN 14 mg/dL (7-18); CALCIUM 8.2 mg/dL (8.5-10.1); CHLORIDE 109 mmol/L (98-107); CO2 30 mmol/L (21-32); CREATININE 0.8 mg/dL (0.7-1.3); GLUCOSE,RANDOM 88 mg/dL (74-106); MAGNESIUM 2.2 mg/dL (1.8-2.4); POTASSIUM 4.6 mmol/L (3.5-5.1); SGOT/AST 18 U/L (15-37); SGPT/ALT 24 U/L (12-78); SODIUM 143 mmol/L (136-145); TOT PROT 6.4 g/dl (6.4-8.2)
[2017-08-12 08:51] LABS: ALK PHOS 54 U/L (45-117)
[2017-08-12] MEDS ORDERED: LOSARTAN POTASSIUM 50 MG TABLET (FP) PO SCH (10:00)
[2017-08-12] MEDS ORDERED: ISOSORBIDE MONONITRATE 30 MG TAB.SR.24H (FP) PO SCH (10:00)
[2017-08-12] MEDS ORDERED: PT OWN MED DRAWER 7, Y5N ONE ×2 (10:26→19:49)
[2017-08-12] MEDS: ASPIRIN 81 MG CHEWABLE TABLETS PO SCH (10:27)
--- NOTE | 2017-08-12 10:27 | CONSULT ---
Consult Detox [facility] Reason for Current Admission/Consult: substance use Referred by:: elmer girard lenora [place] - History History of Present Illness: 62 yo m known to me from [facility] where he was dmitted for alcohol detox for severe alcohol use disorder with withdrawl sx and cocaine dependncewhen he deveeloped chest pain and rapid AF and admitted to [facility] for cardiac work up. P <HX hypertension, CAD, [place], CABG with stents, CHF, HLD. He was in detox at [facility] for two days and comes to [place] [facility] for chest pain and worsening shortness of breath. Patient seenin cardiology where he was having a stress test and was very tearful requesting to return to rehab when he is medically stable as h needs to sober up after recent relpase after of grandchild. Still has chest pain but no withdrwal sx reported. does not smoke, uses cocainer egularly but denies all other illicit drug use. long periods of sobriety in past - History Source History Provided By: Patient, Medical Record, Caregiver Limitations to Obtaining History: No Limitations - Alcohol/Substance Use Hx Alcohol Use: Yes (2 PINTS-X2 DAYS AGO LAST DRINK) Hx Substance Use: Yes (cocaine) Hx Substance Use Treatment: Yes ([facility] detox) - Past Medical History MAJOR ACCOUNT REPRESENTATIVE: Yes: Syncope Cardio/Vascular: Yes: CAD, CHF, HTN, Hyperlipdemia Psych: Yes: Addictions - Past Surgical History Past Surgical History: Yes: CABG, Stent - Significant Medical Findings: 62 yo m c/o chest pain on libirum detox without symptoms of withdrwal awaiting stress test in cardiology appears tearful, depressed but medically stable CIWA Score - CIWA Score Nausea/Vomitin-No Nausea/No Vomiting Muscle Tremors: None Anxiety: 4-Mod. Anxious/Guarded Agitation: 0-Normal Activity Paroxysmal Sweats: 1-Minimal Palms Moist Orientation: 0-Oriented Tacttile Disturbances: 1-Very Mild Itch/Numbness Auditory Disturbances: 0-None Visual Disturbances: 0-None Headache: 0-None Present CIWA-Ar Total Score: 6 Assessment Plan - Diagnosis (1) Chest pain Status: Acute Qualifiers: Chest pain type: chest pain on breathing Qualified Code(s): R07.1 - Chest pain on breathing (2) Alcohol dependence with uncomplicated withdrawal Status: Acute (3) Drug-induced mood disorder Status: Acute (4) Insomnia Status: Acute (5) Substance induced mood disorder Status: Acute (6) Substance-induced sleep disorder Status: Acute (7) Asthma Status: Chronic (8) HTN (hypertension) Status: Chronic Qualifiers: Hypertension type: essential hypertension Qualified Code(s): I10 - Essential (primary) hypertension (9) History of knee replacement Status: Chronic Qualifiers: Laterality: bilateral Qualified Code(s): Z96.653 - Presence of artificial knee joint, bilateral (10) Hx of CABG Status: Chronic (11) Obesity Status: Chronic (12) Osteoarthritis Status: Chronic Qualifiers: Osteoarthritis location: knee Osteoarthritis type: primary Laterality: bilateral Qualified Code(s): M17.0 - Bilateral primary osteoarthritis of knee (13) S/P angioplasty with stent Status: Chronic (14) Chronic bronchitis Status: Suspected Qualifiers: Chronic bronchitis type: simple Qualified Code(s): J41.0 - Simple chronic bronchitis Comment: DIMPLE (15) History of bariatric surgery Status: Resolved - Plan Plan: chart, imagina and labs reviewd. Patint examined and history taken, case discussed with medical team. REcommend: 1. cont libirum detox as ordered, fluids, mvi 2. if medically cleared after stress test may send to rehab if bed available and insurance is accepted. 3. control bp, hr, give libirum for all episodes of chest pain prn Catherine Recinos MD [phone] - Medication Detox Regimen/Protocol: Librium
[2017-08-12] MEDS: FUROSEMIDE 40 MG TABLET (FP) PO SCH (10:28)
[2017-08-12] MEDS: PRENATAL VITAMINS W/ FOLIC ACID TABLET (FP) PO SCH (10:28)
[2017-08-12] MEDS: LOSARTAN POTASSIUM 50 MG TABLET (FP) PO SCH (10:28)
[2017-08-12] MEDS: CLOPIDOGREL BISULFATE 75 MG TABLET (FP) PO SCH (10:28)
[2017-08-12] MEDS: ISOSORBIDE MONONITRATE 30 MG TAB.SR.24H (FP) PO SCH (10:28)
[2017-08-12] MEDS ORDERED: ALBUTEROL SO4 18 GM HFA INHALER IH PRN (10:29)
--- NOTE | 2017-08-12 11:46 | CON.CARD ---
Consult - History of Present Illness History of Present Illness: The patient is a 62 year old male with a history of HTN, CAD, [place], CABG, CHF, HLD , Alcohol abuse, Cocaine abuse, who presents from [facility] for evaluation of chest pain and SOB. The patient reports onset of 8/10 chest pain that he describes as a pressure beginning 50 minutes prior to presentation with associated SOB prompting his presentation to the ED for evaluation. He states that his symptoms are similar to his prior symptoms leading to his CABG. He states that his last use of alcohol and cacaine was 2 days ago. He reports some nausea and non-bilious, non-bloody vomiting as well. He received a nitro at [facility] and was noted to be hypotensive to [address] and iv fluids were started. He otherwise denies fevers, chills, cough, abdominal pain , or changes with urination or bowel movements. 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 Cardio/Vascular: Yes: CAD, CHF, HTN, Hyperlipdemia Psych: Yes: Addictions - Past Surgical History Past Surgical History: Yes: CABG, Stent - Alcohol/Substance Use Hx Alcohol Use: Yes (2 PINTS-X2 DAYS AGO LAST DRINK) History of Substance Use: reports: Cocaine - Smoking History Smoking history: Never smoked Have you smoked in the past 12 months: No Aproximately how many cigarettes per day: 0 - Social History ADL: Support Services History of Recent Travel: No Home Medications - Allergies Allergies/Adverse Reactions: Allergies Allergy/AdvReac Type Severity Reaction Status Date / Time egg Allergy Intermediate Rash Verified 08/11/17 14:05 Egg Derived Allergy Intermediate Rash Verified 08/12/17 21:59 No Known Drug Allergies Allergy Verified 08/11/17 14:05 - Home Medications Home Medications: Ambulatory Orders Acetaminophen [Tylenol] 650 mg PO Q4H PRN 08/11/17 Albuterol Sulfate Inhaler - [Ventolin Hfa Inhaler -] 1 puff IH Q4H PRN 08/11/17 Aspirin 81 mg PO DAILY 08/11/17 Atorvastatin Ca [Lipitor] 20 mg PO HS 08/11/17 Chlordiazepoxide [Librium -] 0 mg PO DAILY 08/11/17 Clopidogrel Bisulfate [Plavix] 75 mg PO DAILY 08/11/17 Furosemide [Lasix] 40 mg PO DAILY 08/11/17 Guaifenesin Dm [Robitussin Dm -] 10 ml PO Q6H PRN 08/11/17 Isosorbide Mononitrate [Imdur -] 30 mg PO DAILY 08/11/17 Loperamide HCl [Imodium -] 4 mg PO Q6H PRN 08/11/17 Losartan Potassium [Cozaar] 50 mg PO DAILY 08/11/17 Mag Hydrox/Al Hydrox/Simeth [Mylanta Oral Suspension -] 30 ml PO Q6H PRN Magnesium Citrate [Citroma -] 300 ml PO Q48H PRN 08/11/17 Magnesium Hydrox 2400MG/30Ml [Milk of Magnesia -] 30 ml PO DAILY PRN 08/11/17 Melatonin 5 mg PO HS PRN 08/11/17 Menthol/Phenol [Cepastat Lozenge -] 1 each MM Q4H PRN 08/11/17 Nitroglycerin [Nitrostat] 0.4 mg SL PRN PRN 08/11/17 P-Ephed 60Mg/Triprolidi 2.5MG [Actifed -] 1 combo PO TID PRN 08/11/17 Vitamins (Sjr) - 1 tab PO DAILY 08/11/17 Thiamine HCl [Vitamin B1] 100 mg PO HS 08/11/17 Trimethobenzamide HCl [Tigan] 200 mg IM Q8H PRN 08/11/17 hydrOXYzine PAMOATE [Vistaril -] 25 mg PO Q4H PRN 08/11/17 traZODone HCL [Desyrel -] 100 mg PO HS 08/11/17 Family Disease History - Family Disease History Family Disease History: CA: Father (lung ), Mother (brain ), Brother (smokers-lung ca ), Other: Daughter (two - adult) Vital Signs: Vital Signs Temperature 98.5 F 08/12/17 06:16 Pulse Rate 73 08/12/17 06:16 Respiratory Rate 20 08/12/17 06:16 Blood Pressure 118/62 08/12/17 06:16 O2 Sat by Pulse Oximetry (%) 94 L 08/12/17 06:51 - Other Data Labs, Other Data: CBC, BMP 08/11/17 14:40 08/12/17 07:00 INR, PTT INR 1.04 (0.82-1.09) 08/11/17 14:40 Troponin, BNP 08/11/17 08/12/17 08/12/17 14:40 01:30 07:00 Troponin I < 0.02 < 0.02 < 0.02 B-Natriuretic Peptide 55.92 Troponin, BNP 08/11/17 08/12/17 08/12/17 14:40 01:30 07:00 Troponin I < 0.02 < 0.02 < 0.02 B-Natriuretic Peptide 55.92 Problem List - Problems (1) Alcohol dependence with uncomplicated withdrawal Code(s): F10.230 - ALCOHOL DEPENDENCE WITH WITHDRAWAL, UNCOMPLICATED (2) Chest pain Code(s): R07.9 - CHEST PAIN, UNSPECIFIED Qualifiers: Chest pain type: chest pain on breathing Qualified Code(s): R07.1 - Chest pain on breathing (3) Substance induced mood disorder Code(s): F19.94 - OTH PSYCHOACTIVE SUBSTANCE USE, UNSP W MOOD DISORDER (4) Substance-induced sleep disorder Code(s): F19.982 - OTH PSYCHOACTIVE SUBSTANCE USE, UNSP W SLEEP DISORDER (5) Asthma Code(s): J45.909 - UNSPECIFIED ASTHMA, UNCOMPLICATED (6) CAD (coronary artery disease) of bypass graft Code(s): I25.810 - ATHEROSCLEROSIS OF CABG W/O ANGINA PECTORIS Qualifiers: [place] vs. transplanted heart: unspecified whether [place] or transplanted heart Associated angina: angina presence unspecified Qualified Code(s): I25.810 - Atherosclerosis of coronary artery bypass graft(s) without angina pectoris (7) CHF (congestive heart failure) Code(s): I50.9 - HEART FAILURE, UNSPECIFIED (8) Cocaine dependence Code(s): F14.20 - COCAINE DEPENDENCE, UNCOMPLICATED (9) HTN (hypertension) Code(s): I10 - ESSENTIAL (PRIMARY) HYPERTENSION Qualifiers: Hypertension type: essential hypertension Qualified Code(s): I10 - Essential (primary) hypertension (10) History of knee replacement Code(s): Z96.659 - PRESENCE OF UNSPECIFIED ARTIFICIAL KNEE JOINT Qualifiers: Laterality: bilateral Qualified Code(s): Z96.653 - Presence of artificial knee joint, bilateral (11) Hx of CABG Code(s): Z95.1 - PRESENCE OF AORTOCORONARY BYPASS GRAFT (12) Obesity Code(s): E66.9 - OBESITY, UNSPECIFIED (13) Osteoarthritis Code(s): M19.90 - UNSPECIFIED OSTEOARTHRITIS, UNSPECIFIED SITE Qualifiers: Osteoarthritis location: knee Osteoarthritis type: primary Laterality: bilateral Qualified Code(s): M17.0 - Bilateral primary osteoarthritis of knee (14) Sedative dependence Code(s): F13.20 - SEDATIVE, HYPNOTIC OR ANXIOLYTIC DEPENDENCE, UNCOMPLICATED (15) Alcohol dependence Code(s): F10.20 - ALCOHOL DEPENDENCE, UNCOMPLICATED Qualifiers: Substance use status: uncomplicated Qualified Code(s): F10.20 - Alcohol dependence, uncomplicated (16) Alcohol dependence, episodic drinking behavior Code(s): F10.20 - ALCOHOL DEPENDENCE, UNCOMPLICATED (17) Anxiety and depression Code(s): F41.9 - ANXIETY DISORDER, UNSPECIFIED; F32.9 - MAJOR DEPRESSIVE DISORDER, SINGLE EPISODE, UNSPECIFIED (18) Chest wall pain Code(s): R07.89 - OTHER CHEST PAIN (19) Cocaine abuse Code(s): F14.10 - COCAINE ABUSE, UNCOMPLICATED (20) Drug-induced mood disorder Code(s): F19.94 - OTH PSYCHOACTIVE SUBSTANCE USE, UNSP W MOOD DISORDER (21) Insomnia Code(s): G47.00 - INSOMNIA, UNSPECIFIED (22) Syncope and collapse Code(s): R55 - SYNCOPE AND COLLAPSE (23) Bipolar I, most recent episode mixed, severe Code(s): F31.63 - BIPOLAR DISORD, CRNT EPSD MIXED, SEVERE, W/O PSYCH FEATURES (24) FH: bariatric surgery Code(s): Z84.89 - FAMILY HISTORY OF OTHER SPECIFIED CONDITIONS (25) Gastroesophageal reflux disease Code(s): K21.9 - GASTRO-ESOPHAGEAL REFLUX DISEASE WITHOUT ESOPHAGITIS (26) HLD (hyperlipidemia) Code(s): E78.5 - HYPERLIPIDEMIA, UNSPECIFIED Qualifiers: Hyperlipidemia type: unspecified Qualified Code(s): E78.5 - Hyperlipidemia , unspecified (27) S/P angioplasty with stent Code(s): Z95.9 - PRESENCE OF CARDIAC AND VASCULAR IMPLANT AND GRAFT, UNSP (28) Stented coronary artery Code(s): Z95.5 - PRESENCE OF CORONARY ANGIOPLASTY IMPLANT AND GRAFT (29) Use of cane as ambulatory aid Code(s): R26.2 - DIFFICULTY IN WALKING, NOT ELSEWHERE CLASSIFIED (31) Chronic bronchitis Code(s): J42 - UNSPECIFIED CHRONIC BRONCHITIS Qualifiers: Chronic bronchitis type: simple Qualified Code(s): J41.0 - Simple chronic bronchitis Assessment/Plan ASHD s/p 16 stents last one 3 months ago [employer]ikh[employer] Julio Walker s/p cabg polysubstance abuse htn hlp old [place] copd ECHO essentially normal Plan keep ldl below 70 ASA /Plavix hold BB due to cocaine Detox [facility]
[2017-08-12] MEDS: chlordiazePOXIDE HCL 25 MG CAPSULE PO SCH ×3 (12:01→22:41)
[2017-08-12] MEDS: BENZOCAINE/MENTH/CETYLPYRD CL 1 EACH LOZENGE MM PRN ×2 (16:07→19:52)
--- NOTE | 2017-08-12 17:59 | PN ---
Physical Exam: SUBJECTIVE: Patient seen and examined at the bedside. Still having chest pain 5/10, states its improving OBJECTIVE: Vital Signs Period Temp Pulse Resp BP Sys/Rosenberg Pulse Ox Last 24 Hr 97.6 F-98.7 F 64-79 20-20 104-128/54-70 92-94 GENERAL: Awake, alert, and fully oriented, in no acute distress. HEAD: Normal with no signs of trauma. EYES: Pupils equal, round and reactive to light, extraocular movements intact, sclera anicteric, conjunctiva clear. No lid lag. EARS, NOSE, THROAT: Ears normal, nares patent, oropharynx clear without exudates. Moist mucous membranes. NECK: Normal range of motion, supple without lymphadenopathy, JVD, or masses. LUNGS: Breath sounds equal, diminished bilaterally HEART: Regular rate and rhythm, normal S1 and S2 without murmur, rub or gallop. ABDOMEN: obese soft abdomen MUSCULOSKELETAL: Normal range of motion at all joints. No bony deformities or tenderness. No CVA tenderness. LOWER EXTREMITIES: trace peripheral edema. NEUROLOGICAL: Normal speech. Normal gait. PSYCHIATRIC: Cooperative. Good eye contact. Appropriate mood and affect. SKIN: Warm, dry, normal turgor, no rashes or lesions noted, normal capillary refill. Laboratory Results - last 24 hr 08/12/17 08/12/17 01:30 07:00 Sodium 143 Potassium 4.6 Chloride 109 H Carbon Dioxide 30 Anion Gap 4 L BUN 14 Creatinine 0.8 Creat Clearance w eGFR > 60 Random Glucose 88 Calcium 8.2 L Magnesium 2.2 Total Bilirubin 0.4 AST 18 ALT 24 Alkaline Phosphatase 54 Troponin I < 0.02 < 0.02 Total Protein 6.4 Albumin 3.1 L Active Medications Generic Name Dose Route Start Last Admin Trade Name Freq PRN Reason Stop Dose Admin Acetaminophen 650 mg 08/11/17 17:26 Tylenol - PO Q6H PRN FEVER Albuterol Sulfate 1 puff 08/12/17 10:29 Ventolin Hfa Inhaler - IH Q4H PRN ASTHMA Albuterol/Ipratropium 1 amp 08/11/17 18:36 Duoneb - NEB Q6H PRN SHORTNESS OF BREATH Aspirin 81 mg 08/12/17 10:00 08/12/17 10:27 Asa - PO 81 mg DAILY [facility] Administration Atorvastatin Calcium 20 mg 08/11/17 22:00 08/11/17 21:15 Lipitor - PO 20 mg HS [facility]E Administration Benzocaine/Menthol 1 each 08/12/17 12:30 08/12/17 16:07 Cepacol Lozenge - MM 1 each PRN PRN Administration SORE THROAT Chlordiazepoxide HCl 15 mg 08/14/17 11:00 Librium - PO 08/15/17 05:01 [id number] CHENTE Chlordiazepoxide HCl 25 mg 08/12/17 08:45 Librium - PO 08/15/17 08:44 Q4H PRN WITHDRAWAL(CONT SUBST) Chlordiazepoxide HCl 25 mg 08/12/17 10:38 08/12/17 17:22 Librium - PO 08/12/17 23:01 25 mg [id number] [facility]ENTE Administration Clopidogrel Bisulfate 75 mg 08/12/17 10:00 08/12/17 10:28 Plavix - PO 75 mg DAILY [facility] Administration Furosemide 40 mg 08/12/17 10:00 08/12/17 10:28 Lasix - PO 40 mg DAILY [facility] Administration Isosorbide Mononitrate 30 mg 08/12/17 10:00 08/12/17 10:28 Imdur - PO 30 mg DAILY [facility] Administration Losartan Potassium 50 mg 08/12/17 10:00 08/12/17 10:28 Cozaar - PO 50 mg DAILY [facility] Administration Melatonin 5 mg 08/11/17 22:00 Melatonin PO HS PRN insomnia Nitroglycerin 0.4 mg 08/11/17 17:26 Nitrostat - SL PRN PRN chest pain Multivit/Folic Acid/Iron 1 tab 08/12/17 10:00 08/12/17 10:28 Vitamins (Sjr) - PO 1 tab DAILY [facility]E Administration Thiamine HCl 100 mg 08/11/17 22:00 08/11/17 21:15 Vitamin B1 - PO 100 mg HS [facility]E Administration Trazodone HCl 100 mg 08/11/17 22:00 08/11/17 21:15 Desyrel - PO 100 mg HS [facility]E Administration ASSESSMENT/PLAN: Mr. Isaac is a 62 year old male with a significant past medical history of hypertension, CAD, [place], CABG with stents, CHF, HLD, ETOH abuse, cocaine abuse. He was in detox at [facility] for two days and comes to [place] [facility] for chest pain and worsening shortness of breath. Patient has new onset midsternal "pressure like" chest pain that does not radiate but renders him short of breath. 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 Fluids: tolerating PO Electrolytes: monitor Nutrition: diabetic Visit type - Emergency Visit Emergency Visit: Yes ED Registration Date: 08/11/17 Care time: The patient presented to the Emergency Department on the above date and was hospitalized for further evaluation of their emergent condition. - New Patient This patient is new to me today: No - Critical Care Critical Care patient: No - Discharge Referral Referred to [facility] Med P.C.: No
[2017-08-12] MEDS: ATORVASTATIN CA 20 MG TABLET (FP) PO SCH (22:40)
[2017-08-12] MEDS: traZODone HCL 50 MG TABLET (FP) PO SCH (22:41)
[2017-08-12] MEDS: THIAMINE HCL 100 MG TABLET (FP) PO SCH (22:41)
[2017-08-13] MEDS: chlordiazePOXIDE 5 MG CAPSULE PO SCH ×4 (05:45→22:24)
[2017-08-13] MEDS: BENZOCAINE/MENTH/CETYLPYRD CL 1 EACH LOZENGE MM PRN ×3 (06:12→19:35)
[2017-08-13] MEDS ORDERED: chlordiazePOXIDE HCL 25 MG CAPSULE PO SCH (09:00)
--- NOTE | 2017-08-13 09:49 | PN ---
Progress Note, Physician History of Present Illness: The patient is a 62 year old male with a history of HTN, CAD, MD, CABG, CHF, HLD , Alcohol abuse, Cocaine abuse, who presents from [facility] for evaluation of chest pain and SOB. The patient reports onset of 8/10 chest pain that he describes as a pressure beginning 50 minutes prior to presentation with associated SOB prompting his presentation to the ED for evaluation. He states that his symptoms are similar to his prior symptoms leading to his CABG. He states that his last use of alcohol and cacaine was 2 days ago. He reports some nausea and non-bilious, non-bloody vomiting as well. He received a nitro at [facility] and was noted to be hypotensive to [address] and iv fluids were started. He otherwise denies fevers, chills, cough, abdominal pain , or changes with urination or bowel movements. - Current Medication List Current Medications: Active Medications Acetaminophen (Tylenol -) 650 mg PO Q6H PRN PRN Reason: FEVER Albuterol Sulfate (Ventolin Hfa Inhaler -) 1 puff IH Q4H PRN PRN Reason: ASTHMA Albuterol/Ipratropium (Duoneb -) 1 amp NEB Q6H PRN PRN Reason: SHORTNESS OF BREATH Aspirin (Asa -) 81 mg PO DAILY [facility] Last Admin: 08/12/17 10:27 Dose: 81 mg Atorvastatin Calcium (Lipitor -) 20 mg PO HS [facility] Last Admin: 08/12/17 22:40 Dose: 20 mg Benzocaine/Menthol (Cepacol Lozenge -) 1 each MM PRN PRN PRN Reason: SORE THROAT Last Admin: 08/13/17 06:12 Dose: 1 each Chlordiazepoxide HCl (Librium -) 25 mg PO Q4H PRN PRN Reason: WITHDRAWAL(CONT SUBST) Stop: 08/15/17 08:44 Chlordiazepoxide HCl (Librium -) 15 mg PO [id number] [facility] Stop: 08/13/17 23:01 Last Admin: 08/13/17 05:45 Dose: Not Given Clopidogrel Bisulfate (Plavix -) 75 mg PO DAILY [facility] Last Admin: 08/12/17 10:28 Dose: 75 mg Furosemide (Lasix -) 40 mg PO DAILY [facility] Last Admin: 08/12/17 10:28 Dose: 40 mg Isosorbide Mononitrate (Imdur -) 30 mg PO DAILY [facility] Last Admin: 08/12/17 10:28 Dose: 30 mg Losartan Potassium (Cozaar -) 50 mg PO DAILY [facility] Last Admin: 08/12/17 10:28 Dose: 50 mg Melatonin (Melatonin) 5 mg PO HS PRN PRN Reason: insomnia Nitroglycerin (Nitrostat -) 0.4 mg SL PRN PRN PRN Reason: chest pain Multivit/Folic Acid/Iron ( Vitamins (Sjr) -) 1 tab PO DAILY [facility] Last Admin: 08/12/17 10:28 Dose: 1 tab Thiamine HCl (Vitamin B1 -) 100 mg PO HS [facility] Last Admin: 08/12/17 22:41 Dose: 100 mg Trazodone HCl (Desyrel -) 100 mg PO [facility] Last Admin: 08/12/17 22:41 Dose: 100 mg - Objective Vital Signs: Vital Signs Temperature 97.8 F 08/13/17 06:00 Pulse Rate 86 08/13/17 06:00 Respiratory Rate 19 08/13/17 06:00 Blood Pressure 94/55 08/13/17 06:00 O2 Sat by Pulse Oximetry (%) 97 08/13/17 07:00 Eyes: Yes: WNL, Conjunctiva Clear, EOM Intact HENT: Yes: WNL, Atraumatic, Normocephalic Neck: Yes: WNL, Supple, Trachea Midline Cardiovascular: Yes: WNL, Regular Rate and Rhythm Respiratory: Yes: WNL, Regular, CTA Bilaterally Gastrointestinal: Yes: WNL, Normal Bowel Sounds Genitourinary: Yes: WNL Musculoskeletal: Yes: WNL Extremities: Yes: WNL Edema: No Integumentary: Yes: WNL Neurological: Yes: WNL, Alert, Oriented ...Motor Strength: WNL Psychiatric: Yes: WNL Labs: CBC, BMP 08/11/17 14:40 08/12/17 07:00 INR, PTT INR 1.04 (0.82-1.09) 08/11/17 14:40 Problem List - Problems (1) Alcohol dependence with uncomplicated withdrawal Code(s): F10.230 - ALCOHOL DEPENDENCE WITH WITHDRAWAL, UNCOMPLICATED (2) Chest pain Code(s): R07.9 - CHEST PAIN, UNSPECIFIED Qualifiers: Chest pain type: chest pain on breathing Qualified Code(s): R07.1 - Chest pain on breathing (3) Substance induced mood disorder Code(s): F19.94 - OTH PSYCHOACTIVE SUBSTANCE USE, UNSP W MOOD DISORDER (4) Substance-induced sleep disorder Code(s): F19.982 - OTH PSYCHOACTIVE SUBSTANCE USE, UNSP W SLEEP DISORDER (5) Asthma Code(s): J45.909 - UNSPECIFIED ASTHMA, UNCOMPLICATED (6) CAD (coronary artery disease) of bypass graft Code(s): I25.810 - ATHEROSCLEROSIS OF CABG W/O ANGINA PECTORIS Qualifiers: [place] vs. transplanted heart: unspecified whether [place] or transplanted heart Associated angina: angina presence unspecified Qualified Code(s): I25.810 - Atherosclerosis of coronary artery bypass graft(s) without angina pectoris (7) CHF (congestive heart failure) Code(s): I50.9 - HEART FAILURE, UNSPECIFIED (8) Cocaine dependence Code(s): F14.20 - COCAINE DEPENDENCE, UNCOMPLICATED (9) HTN (hypertension) Code(s): I10 - ESSENTIAL (PRIMARY) HYPERTENSION Qualifiers: Hypertension type: essential hypertension Qualified Code(s): I10 - Essential (primary) hypertension (10) History of knee replacement Code(s): Z96.659 - PRESENCE OF UNSPECIFIED ARTIFICIAL KNEE JOINT Qualifiers: Laterality: bilateral Qualified Code(s): Z96.653 - Presence of artificial knee joint, bilateral (11) Hx of CABG Code(s): Z95.1 - PRESENCE OF AORTOCORONARY BYPASS GRAFT (12) Obesity Code(s): E66.9 - OBESITY, UNSPECIFIED (13) Osteoarthritis Code(s): M19.90 - UNSPECIFIED OSTEOARTHRITIS, UNSPECIFIED SITE Qualifiers: Osteoarthritis location: knee Osteoarthritis type: primary Laterality: bilateral Qualified Code(s): M17.0 - Bilateral primary osteoarthritis of knee (14) Sedative dependence Code(s): F13.20 - SEDATIVE, HYPNOTIC OR ANXIOLYTIC DEPENDENCE, UNCOMPLICATED (15) Alcohol dependence Code(s): F10.20 - ALCOHOL DEPENDENCE, UNCOMPLICATED Qualifiers: Substance use status: uncomplicated Qualified Code(s): F10.20 - Alcohol dependence, uncomplicated (16) Alcohol dependence, episodic drinking behavior Code(s): F10.20 - ALCOHOL DEPENDENCE, UNCOMPLICATED (17) Anxiety and depression Code(s): F41.9 - ANXIETY DISORDER, UNSPECIFIED; F32.9 - MAJOR DEPRESSIVE DISORDER, SINGLE EPISODE, UNSPECIFIED (18) Chest wall pain Code(s): R07.89 - OTHER CHEST PAIN (19) Cocaine abuse Code(s): F14.10 - COCAINE ABUSE, UNCOMPLICATED (20) Drug-induced mood disorder Code(s): F19.94 - OTH PSYCHOACTIVE SUBSTANCE USE, UNSP W MOOD DISORDER (21) Insomnia Code(s): G47.00 - INSOMNIA, UNSPECIFIED (22) Syncope and collapse Code(s): R55 - SYNCOPE AND COLLAPSE (23) Bipolar I, most recent episode mixed, severe Code(s): F31.63 - BIPOLAR DISORD, CRNT EPSD MIXED, SEVERE, W/O PSYCH FEATURES (24) FH: bariatric surgery Code(s): Z84.89 - FAMILY HISTORY OF OTHER SPECIFIED CONDITIONS (25) Gastroesophageal reflux disease Code(s): K21.9 - GASTRO-ESOPHAGEAL REFLUX DISEASE WITHOUT ESOPHAGITIS (26) HLD (hyperlipidemia) Code(s): E78.5 - HYPERLIPIDEMIA, UNSPECIFIED Qualifiers: Hyperlipidemia type: unspecified Qualified Code(s): E78.5 - Hyperlipidemia , unspecified (27) S/P angioplasty with stent Code(s): Z95.9 - PRESENCE OF CARDIAC AND VASCULAR IMPLANT AND GRAFT, UNSP (28) Stented coronary artery Code(s): Z95.5 - PRESENCE OF CORONARY ANGIOPLASTY IMPLANT AND GRAFT (29) Use of cane as ambulatory aid Code(s): R26.2 - DIFFICULTY IN WALKING, NOT ELSEWHERE CLASSIFIED (31) Chronic bronchitis Code(s): J42 - UNSPECIFIED CHRONIC BRONCHITIS Qualifiers: Chronic bronchitis type: simple Qualified Code(s): J41.0 - Simple chronic bronchitis Assessment/Plan ASHD s/p 16 stents last one 3 months ago [facility] s/p cabg polysubstance abuse htn hlp old MD copd ECHO essentially normal Plan keep ldl below 70 ASA /Plavix hold BB due to cocaine Detox [facility]
[2017-08-13] MEDS ORDERED: PT OWN MED DRAWER 7, Y5N ONE ×2 (10:02→19:34)
[2017-08-13] MEDS: ISOSORBIDE MONONITRATE 30 MG TAB.SR.24H (FP) PO SCH (10:21)
[2017-08-13] MEDS: ASPIRIN 81 MG CHEWABLE TABLETS PO SCH (10:21)
[2017-08-13] MEDS: LOSARTAN POTASSIUM 50 MG TABLET (FP) PO SCH (10:21)
[2017-08-13] MEDS: FUROSEMIDE 40 MG TABLET (FP) PO SCH ×2 (10:21→15:48)
[2017-08-13] MEDS: CLOPIDOGREL BISULFATE 75 MG TABLET (FP) PO SCH (10:22)
[2017-08-13] MEDS: PRENATAL VITAMINS W/ FOLIC ACID TABLET (FP) PO SCH (10:22)
[2017-08-13 11:24] LABS: HEMATOCRIT 42.3 % (35.4-49); HEMOGLOBIN 14.2 GM/dL (11.7-16.9); LYMPH % 16.4 % (8-40); MCHC 33.6 g/dl (32.0-35.9); MEAN CELL VOLUME 89.3 fl (80-96); MEAN PLT VOLUME 9.8 fl (7.5-11.1); MONO % 9.4 % (3.8-10.2); NEUT % 70.2 % (42.8-82.8); PLATELET COUNT 149 K/MM3 (134-434); RBC 4.74 M/mm3 (4.00-5.60); RDW 15.5 % (11.9-15.9); WHITE BLOOD COUNT 7.8 K/mm3 (4.0-10.0)
[2017-08-13 12:22] LABS: ALBUMIN 3.2 g/dl (3.4-5.0); ALK PHOS 58 U/L (45-117); ANION GAP 6 (8-16); BILIRUBIN,TOTAL 0.5 mg/dL (0.2-1.0); BLOOD UREA NITROGEN 14 mg/dL (7-18); CALCIUM 8.5 mg/dL (8.5-10.1); CHLORIDE 103 mmol/L (98-107); CHOLESTEROL 153 mg/dL (50-200); CO2 31 mmol/L (21-32); CREATININE 0.8 mg/dL (0.7-1.3); GLUCOSE,RANDOM 85 mg/dL (74-106); HDL CHOLESTEROL 35 mg/dL (40-60); POTASSIUM 4.2 mmol/L (3.5-5.1); SGOT/AST 20 U/L (15-37); SGPT/ALT 23 U/L (12-78); SODIUM 140 mmol/L (136-145); TOT PROT 6.9 g/dl (6.4-8.2); TRIGLYCERIDES 176 mg/dL (35-160)
[2017-08-13 12:23] LABS: MAGNESIUM 2.3 mg/dL (1.8-2.4)
--- NOTE | 2017-08-13 17:21 | PN ---
Physical Exam: SUBJECTIVE: Patient seen and examined at the bedside. For stress today, awaiting results prior to discharge back to [facility] OBJECTIVE: On discharge, patient will go back to [facility] to rehab Stop Librium prior to sending to rehab (whether complete or not) Discussed with Dr. Kinney Cleared to go back to rehab pending stress test results Vital Signs Period Temp Pulse Resp BP Sys/Rosenberg Pulse Ox Last 24 Hr 97.8 F-98.5 F 73-86 19-20 94-139/55-82 97-97 GENERAL: Awake, alert, and fully oriented, in no acute distress. HEAD: Normal with no signs of trauma. EYES: Pupils equal, round and reactive to light, extraocular movements intact, sclera anicteric, conjunctiva clear. No lid lag. EARS, NOSE, THROAT: Ears normal, nares patent, oropharynx clear without exudates. Moist mucous membranes. NECK: Normal range of motion, supple without lymphadenopathy, JVD, or masses. LUNGS: Breath sounds equal, diminished bilaterally HEART: Regular rate and rhythm, normal S1 and S2 without murmur, rub or gallop. ABDOMEN: obese soft abdomen MUSCULOSKELETAL: Normal range of motion at all joints. No bony deformities or tenderness. No CVA tenderness. LOWER EXTREMITIES: trace peripheral edema. NEUROLOGICAL: Normal speech. Normal gait. PSYCHIATRIC: Cooperative. Good eye contact. Appropriate mood and affect. SKIN: Warm, dry, normal turgor, no rashes or lesions noted, normal capillary refill. Laboratory Results - last 24 hr 08/12/17 08/13/17 08/13/17 18:00 10:44 10:44 WBC 7.8 RBC 4.74 Hgb 14.2 Hct 42.3 MCV 89.3 MCH 30.0 MCHC 33.6 RDW 15.5 Plt Count 149 MPV 9.8 Neutrophils % 70.2 Lymphocytes % 16.4 Monocytes % 9.4 Eosinophils % 3.0 Basophils % 1.0 Sodium 140 Potassium 4.2 Chloride 103 Carbon Dioxide 31 Anion Gap 6 L BUN 14 Creatinine 0.8 Creat Clearance w eGFR > 60 Random Glucose 85 Calcium 8.5 Magnesium Total Bilirubin 0.5 D AST 20 ALT 23 Alkaline Phosphatase 58 Troponin I < 0.02 Total Protein 6.9 Albumin 3.2 L Triglycerides 176 H Cholesterol 153 D Total LDL Cholesterol 106 H D HDL Cholesterol 35 L 08/13/17 10:44 WBC RBC Hgb Hct MCV MCH MCHC RDW Plt Count MPV Neutrophils % Lymphocytes % Monocytes % Eosinophils % Basophils % Sodium Potassium Chloride Carbon Dioxide Anion Gap BUN Creatinine Creat Clearance w eGFR Random Glucose Calcium Magnesium 2.3 Total Bilirubin AST ALT Alkaline Phosphatase Troponin I < 0.02 Total Protein Albumin Triglycerides Cholesterol Total LDL Cholesterol HDL Cholesterol Active Medications Generic Name Dose Route Start Last Admin Trade Name Freq PRN Reason Stop Dose Admin Acetaminophen 650 mg 08/11/17 17:26 Tylenol - PO Q6H PRN FEVER Albuterol Sulfate 1 puff 08/12/17 10:29 Ventolin Hfa Inhaler - IH Q4H PRN ASTHMA Albuterol/Ipratropium 1 amp 08/11/17 18:36 Duoneb - NEB Q6H PRN SHORTNESS OF BREATH Aspirin 81 mg 08/12/17 10:00 08/13/17 10:21 Asa - PO 81 mg DAILY [facility] Administration Atorvastatin Calcium 20 mg 08/11/17 22:00 08/12/17 22:40 Lipitor - PO 20 mg HS [facility]E Administration Benzocaine/Menthol 1 each 08/12/17 12:30 08/13/17 10:22 Cepacol Lozenge - MM 1 each PRN PRN Administration SORE THROAT Chlordiazepoxide HCl 25 mg 08/12/17 08:45 Librium - PO 08/15/17 08:44 Q4H PRN WITHDRAWAL(CONT SUBST) Chlordiazepoxide HCl 15 mg 08/13/17 05:00 08/13/17 11:30 Librium - PO 08/13/17 23:01 Not Given [id number] CHENTE Chlordiazepoxide HCl 10 mg 08/14/17 05:00 Librium - PO 08/14/17 23:01 Q6H-HZC CHENTE Clopidogrel Bisulfate 75 mg 08/12/17 10:00 08/13/17 10:22 Plavix - PO 75 mg DAILY [facility]E Administration Furosemide 40 mg 08/12/17 10:00 08/13/17 15:48 Lasix - PO 40 mg DAILY [facility]E Administration Isosorbide Mononitrate 30 mg 08/12/17 10:00 08/13/17 10:21 Imdur - PO 30 mg DAILY [facility]E Administration Losartan Potassium 50 mg 08/12/17 10:00 08/13/17 10:21 Cozaar - PO 50 mg DAILY [facility]E Administration Melatonin 5 mg 08/11/17 22:00 Melatonin PO HS PRN insomnia Nitroglycerin 0.4 mg 08/11/17 17:26 Nitrostat - SL PRN PRN chest pain Multivit/Folic Acid/Iron 1 tab 08/12/17 10:00 08/13/17 10:22 Vitamins (Sjr) - PO 1 tab DAILY [facility]E Administration Thiamine HCl 100 mg 08/11/17 22:00 08/12/17 22:41 Vitamin B1 - PO 100 mg HS CHENTE Administration Trazodone HCl 100 mg 08/11/17 22:00 08/12/17 22:41 Desyrel - PO 100 mg HS CHENTE Administration ASSESSMENT/PLAN: Mr. Isaac is a 62 year old male with a significant past medical history of hypertension, CAD, [place], CABG-4vessel 2007 with stents, PCI 2008, CHF, HLD, ETOH abuse, cocaine abuse and gastric bypass 2008. He was in detox at [facility] for two days and comes to [place] ER for chest pain and worsening shortness of breath. Patient has new onset midsternal "pressure like" chest pain that does not radiate but renders him short of breath. He is oxygen dependent at 2 liters due to his cardiac history. CV: Chest pain/CAD Rule out ACS Troponins negative s/p stress test today, pending results Monitor on tele, no events overnight Cardiology following Echo reviewed, awaiting cardiology recommendations Pt still having mid sternal chest pain with some improvement Will give dose of Protonix IV now to see if that helps Chest xray clear, unchanged from previous Beta paloma not ordered as pt has recent hx of cocaine use HLD/ASHD s/p 16 stents, elevated lipid panel Increased Lipitor to 80mg daily CAD, AR, CABG with stents ASA /Plavix HTN, chronic On Cozaar, Imdur BB contraindicated CHF On Lasix Monitor intake and output Psyche: ETOH abuse, cocaine abuse On Librium taper, can stop Librium on discharge, as patient will be going to rehab. F.E.N. Fluids: tolerating PO Electrolytes: monitor Nutrition: diabetic Disposition: full code. Visit type - Emergency Visit Emergency Visit: Yes ED Registration Date: 08/11/17 Care time: The patient presented to the Emergency Department on the above date and was hospitalized for further evaluation of their emergent condition. - New Patient This patient is new to me today: No - Critical Care Critical Care patient: No - Discharge Referral Referred to [facility] Med P.C.: No
[2017-08-13] MEDS ORDERED: PANTOPRAZOLE SODIUM 40 MG VIAL IVPUSH ONE (17:28)
[2017-08-13] MEDS ORDERED: MAG HYDROX/AL HYDROX/SIMETH 30 ML UNIT-DOSE CUP PO PRN (17:46)
[2017-08-13] MEDS ORDERED: ATORVASTATIN CA 80 MG TABLET (FP) PO SCH (22:00)
[2017-08-13] MEDS ORDERED: ATORVASTATIN CA 40 MG TABLET (FP) PO SCH (22:00)
[2017-08-13] MEDS: traZODone HCL 50 MG TABLET (FP) PO SCH (22:24)
[2017-08-13] MEDS: THIAMINE HCL 100 MG TABLET (FP) PO SCH (22:25)
[2017-08-14] MEDS: chlordiazePOXIDE 5 MG CAPSULE PO SCH ×2 (05:41→13:09)
[2017-08-14 06:56] LABS: BASO % 0.7 % (0-2.0); EOS % 3.1 % (0-4.5); HEMATOCRIT 42.2 % (35.4-49); HEMOGLOBIN 14.1 GM/dL (11.7-16.9); LYMPH % 16.4 % (8-40); MCH 29.8 pg (25.7-33.7); MCHC 33.5 g/dl (32.0-35.9); MEAN CELL VOLUME 89.2 fl (80-96); MEAN PLT VOLUME 10.1 fl (7.5-11.1); MONO % 9.6 % (3.8-10.2); NEUT % 70.2 % (42.8-82.8); PLATELET COUNT 155 K/MM3 (134-434); RBC 4.73 M/mm3 (4.00-5.60); RDW 15.6 % (11.9-15.9); WHITE BLOOD COUNT 7.9 K/mm3 (4.0-10.0)
[2017-08-14 07:27] LABS: CHLORIDE 104 mmol/L (98-107); POTASSIUM 4.2 mmol/L (3.5-5.1); SODIUM 139 mmol/L (136-145)
[2017-08-14 07:36] LABS: ALBUMIN 3.3 g/dl (3.4-5.0); ALK PHOS 59 U/L (45-117); ANION GAP 5 (8-16); BILIRUBIN,TOTAL 0.5 mg/dL (0.2-1.0); BLOOD UREA NITROGEN 15 mg/dL (7-18); CALCIUM 8.3 mg/dL (8.5-10.1); CO2 30 mmol/L (21-32); CREATININE 0.9 mg/dL (0.7-1.3); GLUCOSE,RANDOM 94 mg/dL (74-106); MAGNESIUM 2.1 mg/dL (1.8-2.4); SGOT/AST 18 U/L (15-37); SGPT/ALT 21 U/L (12-78); TOT PROT 6.8 g/dl (6.4-8.2)
[2017-08-14] MEDS ORDERED: REGADENOSON 0.4 MG/5 ML PRE-FILLED SYRINGE IVPUSH ONE ×2 (09:15→10:32)
[2017-08-14] MEDS ORDERED: PANTOPRAZOLE 40 MG TABLET (FP) PO SCH (10:00)
[2017-08-14] MEDS ORDERED: chlordiazePOXIDE 5 MG CAPSULE PO SCH (11:00)
--- NOTE | 2017-08-14 12:38 | PN ---
Progress Note, Physician History of Present Illness: The patient is a 62 year old male with a history of HTN, CAD, [place], CABG, CHF, HLD , Alcohol abuse, Cocaine abuse, who presents from [facility] for evaluation of chest pain and SOB. The patient reports onset of 8/10 chest pain that he describes as a pressure beginning 50 minutes prior to presentation with associated SOB prompting his presentation to the ED for evaluation. He states that his symptoms are similar to his prior symptoms leading to his CABG. He states that his last use of alcohol and cacaine was 2 days ago. He reports some nausea and non-bilious, non-bloody vomiting as well. He received a nitro at [facility] and was noted to be hypotensive to [address] and iv fluids were started. He otherwise denies fevers, chills, cough, abdominal pain , or changes with urination or bowel movements. - Current Medication List Current Medications: Active Medications Acetaminophen (Tylenol -) 650 mg PO Q6H PRN PRN Reason: FEVER Al Hydroxide/Mg Hydroxide (Mylanta Oral Suspension -) 30 ml PO Q6H PRN PRN Reason: DYSPEPSIA Albuterol Sulfate (Ventolin Hfa Inhaler -) 1 puff IH Q4H PRN PRN Reason: ASTHMA Albuterol/Ipratropium (Duoneb -) 1 amp NEB Q6H PRN PRN Reason: SHORTNESS OF BREATH Aspirin (Asa -) 81 mg PO DAILY [facility] Last Admin: 08/13/17 10:21 Dose: 81 mg Atorvastatin Calcium (Lipitor -) 80 mg PO HS [facility] Last Admin: 08/13/17 22:24 Dose: 80 mg Benzocaine/Menthol (Cepacol Lozenge -) 1 each MM PRN PRN PRN Reason: SORE THROAT Last Admin: 08/13/17 19:35 Dose: 1 each Chlordiazepoxide HCl (Librium -) 25 mg PO Q4H PRN PRN Reason: WITHDRAWAL(CONT SUBST) Stop: 08/15/17 08:44 Chlordiazepoxide HCl (Librium -) 10 mg PO [id number] [facility] Stop: 08/14/17 23:01 Last Admin: 08/14/17 05:41 Dose: Not Given Clopidogrel Bisulfate (Plavix -) 75 mg PO DAILY [facility] Last Admin: 08/13/17 10:22 Dose: 75 mg Furosemide (Lasix -) 40 mg PO DAILY [facility] Last Admin: 08/13/17 15:48 Dose: 40 mg Isosorbide Mononitrate (Imdur -) 30 mg PO DAILY [facility] Last Admin: 08/13/17 10:21 Dose: 30 mg Losartan Potassium (Cozaar -) 50 mg PO DAILY [facility] Last Admin: 08/13/17 10:21 Dose: 50 mg Melatonin (Melatonin) 5 mg PO HS PRN PRN Reason: insomnia Nitroglycerin (Nitrostat -) 0.4 mg SL PRN PRN PRN Reason: chest pain Pantoprazole Sodium (Protonix -) 40 mg PO DAILY [facility] Multivit/Folic Acid/Iron ( Vitamins (Sjr) -) 1 tab PO DAILY [facility] Last Admin: 08/13/17 10:22 Dose: 1 tab Thiamine HCl (Vitamin B1 -) 100 mg PO HS [facility] Last Admin: 08/13/17 22:25 Dose: 100 mg Trazodone HCl (Desyrel -) 100 mg PO [facility] Last Admin: 08/13/17 22:24 Dose: 100 mg - Objective Vital Signs: Vital Signs Temperature 98.1 F 08/14/17 10:00 Pulse Rate 77 08/14/17 10:00 Respiratory Rate 20 08/14/17 10:00 Blood Pressure 112/67 08/14/17 10:00 O2 Sat by Pulse Oximetry (%) 95 08/14/17 10:00 Eyes: Yes: WNL, Conjunctiva Clear, EOM Intact HENT: Yes: WNL, Atraumatic, Normocephalic Neck: Yes: WNL, Supple, Trachea Midline Cardiovascular: Yes: WNL, Regular Rate and Rhythm Respiratory: Yes: WNL, Regular, CTA Bilaterally Gastrointestinal: Yes: WNL, Normal Bowel Sounds Genitourinary: Yes: WNL Musculoskeletal: Yes: WNL Extremities: Yes: WNL Edema: No Integumentary: Yes: WNL Neurological: Yes: WNL, Alert, Oriented ...Motor Strength: WNL Psychiatric: Yes: WNL Labs: CBC, BMP 08/14/17 06:25 08/14/17 06:25 INR, PTT INR 1.04 (0.82-1.09) 08/11/17 14:40 Problem List - Problems (1) Alcohol dependence with uncomplicated withdrawal Code(s): F10.230 - ALCOHOL DEPENDENCE WITH WITHDRAWAL, UNCOMPLICATED (2) Chest pain Code(s): R07.9 - CHEST PAIN, UNSPECIFIED Qualifiers: Chest pain type: chest pain on breathing Qualified Code(s): R07.1 - Chest pain on breathing (3) Substance induced mood disorder Code(s): F19.94 - OTH PSYCHOACTIVE SUBSTANCE USE, UNSP W MOOD DISORDER (4) Substance-induced sleep disorder Code(s): F19.982 - OTH PSYCHOACTIVE SUBSTANCE USE, UNSP W SLEEP DISORDER (5) Asthma Code(s): J45.909 - UNSPECIFIED ASTHMA, UNCOMPLICATED (6) CAD (coronary artery disease) of bypass graft Code(s): I25.810 - ATHEROSCLEROSIS OF CABG W/O ANGINA PECTORIS Qualifiers: [place] vs. transplanted heart: unspecified whether [place] or transplanted heart Associated angina: angina presence unspecified Qualified Code(s): I25.810 - Atherosclerosis of coronary artery bypass graft(s) without angina pectoris (7) CHF (congestive heart failure) Code(s): I50.9 - HEART FAILURE, UNSPECIFIED (8) Cocaine dependence Code(s): F14.20 - COCAINE DEPENDENCE, UNCOMPLICATED (9) HTN (hypertension) Code(s): I10 - ESSENTIAL (PRIMARY) HYPERTENSION Qualifiers: Hypertension type: essential hypertension Qualified Code(s): I10 - Essential (primary) hypertension (10) History of knee replacement Code(s): Z96.659 - PRESENCE OF UNSPECIFIED ARTIFICIAL KNEE JOINT Qualifiers: Laterality: bilateral Qualified Code(s): Z96.653 - Presence of artificial knee joint, bilateral (11) Hx of CABG Code(s): Z95.1 - PRESENCE OF AORTOCORONARY BYPASS GRAFT (12) Obesity Code(s): E66.9 - OBESITY, UNSPECIFIED (13) Osteoarthritis Code(s): M19.90 - UNSPECIFIED OSTEOARTHRITIS, UNSPECIFIED SITE Qualifiers: Osteoarthritis location: knee Osteoarthritis type: primary Laterality: bilateral Qualified Code(s): M17.0 - Bilateral primary osteoarthritis of knee (14) Sedative dependence Code(s): F13.20 - SEDATIVE, HYPNOTIC OR ANXIOLYTIC DEPENDENCE, UNCOMPLICATED (15) Alcohol dependence Code(s): F10.20 - ALCOHOL DEPENDENCE, UNCOMPLICATED Qualifiers: Substance use status: uncomplicated Qualified Code(s): F10.20 - Alcohol dependence, uncomplicated (16) Alcohol dependence, episodic drinking behavior Code(s): F10.20 - ALCOHOL DEPENDENCE, UNCOMPLICATED (17) Anxiety and depression Code(s): F41.9 - ANXIETY DISORDER, UNSPECIFIED; F32.9 - MAJOR DEPRESSIVE DISORDER, SINGLE EPISODE, UNSPECIFIED (18) Chest wall pain Code(s): R07.89 - OTHER CHEST PAIN (19) Cocaine abuse Code(s): F14.10 - COCAINE ABUSE, UNCOMPLICATED (20) Drug-induced mood disorder Code(s): F19.94 - OTH PSYCHOACTIVE SUBSTANCE USE, UNSP W MOOD DISORDER (21) Insomnia Code(s): G47.00 - INSOMNIA, UNSPECIFIED (22) Syncope and collapse Code(s): R55 - SYNCOPE AND COLLAPSE (23) Bipolar I, most recent episode mixed, severe Code(s): F31.63 - BIPOLAR DISORD, CRNT EPSD MIXED, SEVERE, W/O PSYCH FEATURES (24) FH: bariatric surgery Code(s): Z84.89 - FAMILY HISTORY OF OTHER SPECIFIED CONDITIONS (25) Gastroesophageal reflux disease Code(s): K21.9 - GASTRO-ESOPHAGEAL REFLUX DISEASE WITHOUT ESOPHAGITIS (26) HLD (hyperlipidemia) Code(s): E78.5 - HYPERLIPIDEMIA, UNSPECIFIED Qualifiers: Hyperlipidemia type: unspecified Qualified Code(s): E78.5 - Hyperlipidemia , unspecified (27) S/P angioplasty with stent Code(s): Z95.9 - PRESENCE OF CARDIAC AND VASCULAR IMPLANT AND GRAFT, UNSP (28) Stented coronary artery Code(s): Z95.5 - PRESENCE OF CORONARY ANGIOPLASTY IMPLANT AND GRAFT (29) Use of cane as ambulatory aid Code(s): R26.2 - DIFFICULTY IN WALKING, NOT ELSEWHERE CLASSIFIED (31) Chronic bronchitis Code(s): J42 - UNSPECIFIED CHRONIC BRONCHITIS Qualifiers: Chronic bronchitis type: simple Qualified Code(s): J41.0 - Simple chronic bronchitis Assessment/Plan ASHD s/p 16 stents last one 3 months ago [facility] Jul[facility] Walker s/p cabg polysubstance abuse htn hlp old [place] copd ECHO essentially normal Plan keep ldl below 70 ASA /Plavix hold BB due to cocaine Detox MIBI st negative d/c telemetry may be transfered to detox
[2017-08-14] MEDS ORDERED: PT OWN MED DRAWER 7, Y5N ONE (13:07)
[2017-08-14] MEDS: PRENATAL VITAMINS W/ FOLIC ACID TABLET (FP) PO SCH (13:09)
[2017-08-14] MEDS: ASPIRIN 81 MG CHEWABLE TABLETS PO SCH (13:09)
[2017-08-14] MEDS: FUROSEMIDE 40 MG TABLET (FP) PO SCH (13:09)
[2017-08-14] MEDS: CLOPIDOGREL BISULFATE 75 MG TABLET (FP) PO SCH (13:09)
[2017-08-14] MEDS: ISOSORBIDE MONONITRATE 30 MG TAB.SR.24H (FP) PO SCH (13:09)
[2017-08-14] MEDS: LOSARTAN POTASSIUM 50 MG TABLET (FP) PO SCH (13:09)
[2017-08-14 14:33] VITALS: BP 135/58; PULSE 83; TEMP 98.6
--- NOTE | 2017-08-14 15:37 | DS ---
Physical Exam: SUBJECTIVE: Patient seen and examined OBJECTIVE: Vital Signs Period Temp Pulse Resp BP Sys/Rosenberg Pulse Ox Last 24 Hr 98.1 F-98.8 F 77-94 18-20 106-144/52-76 95-96 PHYSICAL EXAM GENERAL: The patient is awake, alert, and fully oriented, in no acute distress. HEAD: Normal with no signs of trauma. EYES: PERRL, extraocular movements intact, sclera anicteric, conjunctiva clear. ENT: Ears normal, nares patent, oropharynx clear without exudates, moist mucous membranes. NECK: Trachea midline, full range of motion, supple. LUNGS: Breath sounds equal, clear to auscultation bilaterally, no wheezes, no crackles, no accessory muscle use. HEART: Regular rate and rhythm, S1, S2 without murmur, rub or gallop. ABDOMEN: Soft, nontender, nondistended, normoactive bowel sounds, no guarding, no rebound, no hepatosplenomegaly, no masses. EXTREMITIES: 2+ pulses, warm, well-perfused, no edema. NEUROLOGICAL: Cranial nerves II through XII grossly intact. Normal speech, gait not observed. PSYCH: Normal mood, normal affect. SKIN: Warm, dry, normal turgor, no rashes or lesions noted. LABS Laboratory Results - last 24 hr 08/14/17 08/14/17 06:25 06:25 WBC 7.9 RBC 4.73 Hgb 14.1 Hct 42.2 MCV 89.2 MCH 29.8 MCHC 33.5 RDW 15.6 Plt Count 155 MPV 10.1 Neutrophils % 70.2 Lymphocytes % 16.4 Monocytes % 9.6 Eosinophils % 3.1 Basophils % 0.7 Sodium 139 Potassium 4.2 Chloride 104 Carbon Dioxide 30 Anion Gap 5 L BUN 15 Creatinine 0.9 Creat Clearance w eGFR > 60 Random Glucose 94 Calcium 8.3 L Magnesium 2.1 Total Bilirubin 0.5 AST 18 ALT 21 Alkaline Phosphatase 59 Total Protein 6.8 Albumin 3.3 L HOSPITAL COURSE: Date of Admission:08/11/17 Date of Discharge: 08/14/17 Minutes to complete discharge: 37 Discharge Summary Reason For Visit: CHEST PAIN Current Active Problems Chest pain (Acute) Hospital Course: Initial Hospital Course: Briefly, this 62 year old male with pmhx of hypertension, CAD, DE, CABG with stents, CHF, HLD, ETOH abuse, cocaine abuse presented from detox at [facility] after two days with for chest pain and worsening shortness of breath. CP described as non radiating midsternal "pressure like" rendering him short of breath similar to the pain he had prior to his CABG. Subsequent Hospital Course/Progress Note/DC Summary: Plan: 1. Chest pain/CAD - r/o DE trops negative - Stess test negative - ECHO nml size, fxn, mild tr, basal septum mild hypertrophied 2. CAD s/p CABG/HLD/ASHD s/p 16 stents - Last one 3 months ago [facility] Walker - ASA, plavix - Lipitor 20mg hs 3. HTN - Continue Cozaar, Imdur - No BB due to cocaine use 4. CHF - Not in exacerbation - Continue Lasix 5. ETOH abuse, cocaine abuse - Off librium taper - For rehab at [facility] Dispo: - Return to [facility] for rehab Condition: Stable - Instructions Diet, Activity, Other Instructions: Please return to the ED for any new, persistent, or worsening symptoms. Follow up with your PCP in 1 week Take home medications as directed Referrals: Jimmy Brown MD [Staff Physician] - Disposition: TRANSFER ACUTE CARE/OTHER HOSP - Home Medications Comprehensive Discharge Medication List: Ambulatory Orders Acetaminophen [Tylenol] 650 mg PO Q4H PRN 08/11/17 Albuterol Sulfate Inhaler - [Ventolin HFA Inhaler -] 1 puff IH Q4H PRN 08/11/17 Aspirin 81 mg PO DAILY 08/11/17 Atorvastatin Ca [Lipitor] 20 mg PO HS 08/11/17 Clopidogrel Bisulfate [Plavix] 75 mg PO DAILY 08/11/17 Furosemide [Lasix] 40 mg PO DAILY 08/11/17 Guaifenesin Dm [Robitussin Dm -] 10 ml PO Q6H PRN 08/11/17 Isosorbide Mononitrate [Imdur -] 30 mg PO DAILY 08/11/17 Losartan Potassium [Cozaar] 50 mg PO DAILY 08/11/17 Mag Hydrox/Al Hydrox/Simeth [Mylanta Oral Suspension -] 30 ml PO Q6H PRN Magnesium Citrate [Citroma -] 300 ml PO Q48H PRN 08/11/17 Magnesium Hydrox 2400MG/30Ml [Milk of Magnesia -] 30 ml PO DAILY PRN 08/11/17 Melatonin 5 mg PO HS PRN 08/11/17 Menthol/Phenol [Cepastat Lozenge -] 1 each MM Q4H PRN 08/11/17 Nitroglycerin [Nitrostat] 0.4 mg SL PRN PRN 08/11/17 P-Ephed 60Mg/Triprolidi 2.5MG [Actifed -] 1 combo PO TID PRN 08/11/17 Vitamins (Sjr) - 1 tab PO DAILY 08/11/17 Thiamine HCl [Vitamin B1] 100 mg PO HS 08/11/17 Trimethobenzamide HCl [Tigan] 200 mg IM Q8H PRN 08/11/17 hydrOXYzine PAMOATE [Vistaril -] 25 mg PO Q4H PRN 08/11/17 traZODone HCL [Desyrel -] 100 mg PO HS 08/11/17 This patient is new to me today: Yes Date on this admission: 08/14/17 Emergency Visit: Yes ED Registration Date: 08/11/17 Care time: The patient presented to the Emergency Department on the above date and was hospitalized for further evaluation of their emergent condition. Critical Care patient: No - Discharge Referral Referred to [facility] No
== END 2017-08-14 17:11 | disposition other institution (70) | DRG 303 ==
LOC: JER 13:55 → JERBED 16:01 → OBSVTOIN 16:30 → J4W 17:19
PROVIDERS: ADMIT Internal Medicine; ATTEND Nurse Practitioner Acute Care
DX: I25.10 Atherosclerotic heart disease of native coronary artery without angina pectoris (principal); R07.9 Chest pain, unspecified; Z98.61 Coronary angioplasty status; Z95.1 Presence of aortocoronary bypass graft; I11.0 Hypertensive heart disease with heart failure; I50.9 Heart failure, unspecified; F14.10 Cocaine abuse, uncomplicated; F10.10 Alcohol abuse, uncomplicated; E78.5 Hyperlipidemia, unspecified
CPT/HCPCS: 36415; 71045-TC-FY; 78452-TC; 80053; 80061; 82550; 82553; 83721; 83735; 83880; 84484; 85025; 85610; 85730; 93005; 93010; 93017; 93306-TC; 94640; 99285-25; A9502; G0378; J7620

== ENCOUNTER 2017-08-14 16:54 | Inpatient (IN) | payer OTHER ==
--- NOTE | 2017-08-14 17:15 | HP ---
[facility] Rehab Assess/Revision - Admission History Admitted to Rehab from: [facility] Date of Admission to Rehab: 08/14/2017 - Vital signs Vital Signs: vss, chart reveiewed - Findings Detox History & Physical reviewed: Yes Concur with findings: Yes (medically stable, denies chest pain at thsi time. ) Inpatient Rehab Admission - Initial Determination Are CD services needed?: Yes Free of communicable disease: Yes Not in need of hospitalization: Yes - Rehab Admission Criteria Comorbidities: Yes Patient is meeting Inpatient Rehab admission criteria:: Yes
[2017-08-14] MEDS ORDERED: MAGNESIUM CITRATE 300 ML BOTTLE PO PRN (17:17)
[2017-08-14] MEDS ORDERED: NITROGLYCERIN SUBLINGUAL 1/150 0.4 MG TAB SL PRN (17:17)
[2017-08-14] MEDS ORDERED: MAG HYDROX/AL HYDROX/SIMETH 30 ML UNIT-DOSE CUP PO PRN (17:17)
[2017-08-14] MEDS ORDERED: IBUPROFEN 400 MG TABLET (FP) PO PRN (17:17)
[2017-08-14] MEDS ORDERED: MENTHOL/PHENOL 1 EACH UD MM PRN (17:17)
[2017-08-14] MEDS ORDERED: hydrOXYzine PAMOATE 50 MG CAPSULE (FP) PO PRN (17:17)
[2017-08-14] MEDS ORDERED: P-EPHED 60MG/TRIPROLIDI 2.5MG TABLET PO PRN (17:17)
[2017-08-14] MEDS ORDERED: MAGNESIUM HYDROX 2400MG/30ML ORAL SUSPENSION 30 ML CUP PO PRN (17:17)
[2017-08-14] MEDS ORDERED: LOPERAMIDE HCL 2 MG CAPSULE PO PRN (17:17)
[2017-08-14] MEDS ORDERED: guaiFENesin/D-METHORPHAN HB 10 ML UNIT-DOSE CUPS PO PRN (17:17)
[2017-08-14 17:21] VITALS: BMI 41.5
[2017-08-14] MEDS: THIAMINE HCL 100 MG TABLET (FP) PO SCH (21:48)
[2017-08-14] MEDS: ATORVASTATIN CA 20 MG TABLET (FP) PO SCH (21:48)
[2017-08-14] MEDS ORDERED: MELATONIN 5 MG TABLETS PO PRN (22:00)
[2017-08-15] MEDS: FUROSEMIDE 40 MG TABLET (FP) PO SCH (09:53)
[2017-08-15] MEDS: PRENATAL VITAMINS W/ FOLIC ACID TABLET (FP) PO SCH (09:53)
[2017-08-15] MEDS: ASPIRIN 81 MG CHEWABLE TABLETS PO SCH (09:53)
[2017-08-15] MEDS: ISOSORBIDE MONONITRATE 30 MG TAB.SR.24H (FP) PO SCH (09:53)
[2017-08-15] MEDS: CLOPIDOGREL BISULFATE 75 MG TABLET (FP) PO SCH (09:53)
[2017-08-15] MEDS: LOSARTAN POTASSIUM 50 MG TABLET (FP) PO SCH (09:53)
[2017-08-15] MEDS ORDERED: TUBERCULIN PPD 5 TU/0.1ML VIAL ID ONE (10:28)
[2017-08-15] MEDS: ACETAMINOPHEN 325 MG TABLET (FP) PO PRN (12:26)
--- NOTE | 2017-08-15 13:00 | EKG ---
Test Reason : Blood Pressure : / mmHG Vent. Rate : 086 BPM Atrial Rate : 086 BPM P-R Int : 158 ms QRS Dur : 090 ms QT Int : 366 ms P-R-T Axes : 043 019 039 degrees QTc Int : 437 ms NORMAL SINUS RHYTHM NORMAL ECG WHEN COMPARED WITH ECG OF 11-AUG-2017 14:14, NO SIGNIFICANT CHANGE WAS FOUND Confirmed by MICHELLE CAMACHO MD ([id number]) on 08/15/2017 1:00:07 PM Referred By: Confirmed By:MICHELLE CAMACHO MD
--- NOTE | 2017-08-15 14:13 | HP ---
Psychiatrist Admission - Data Date of interview: 08/15/17 Admission source: [facility] Identifying data: This is the third 5N inpatient rehabilitaiton admission for this 62 years old male, father of 2 children, unemployed on SSD, domiciled residing in [place]. Medical History: Hypertension, bronchial asthma/COPD, hypercholesterolemia, osteoarthritis of knees and back and a history of multiple surgeries(triple coronary artery bypass graft in 2007, gastric bypass in 1999 and bilateral knee replacement 2007 & 2009. Obesity. Psychiatric History: Patient reports history of bipolar disorder, no psychiatric hospitalizations,past treatment with trazodone, seroquel, cymbalta, states his PCP prescribes xanax and klonopin. Seen by while in detox continues trazodone, patient reports he does not want any medications. Physical/Sexual Abuse/Trauma History: Denies history of sexual, physical and verbal abuse. Vital Signs: Vital Signs - 24 hr 08/14/17 08/14/17 08/15/17 17:18 21:43 03:30 Temperature 98.9 F 99.0 F Pulse Rate 87 89 Respiratory 18 18 20 Rate Blood Pressure 160/85 109/56 08/15/17 07:24 Temperature 98.9 F Pulse Rate 99 H Respiratory 18 Rate Blood Pressure 112/54 Allergies/Adverse Reactions: Allergies Allergy/AdvReac Type Severity Reaction Status Date / Time egg Allergy Intermediate Rash Verified 08/14/17 19:58 Egg Derived Allergy Intermediate Rash Verified 08/14/17 19:58 No Known Drug Allergies Allergy Verified 08/14/17 19:58 Date of last physical exam: 08/10/17 Concur with the findings of this exam: Yes - Substance Abuse/Tx History Hx Alcohol Use: Yes Hx Substance Use: Yes Substance Use Type: Alcohol (2pints of liquor daily use), Cocaine (started at age of 35, 2-3 times a week for $50) Hx Substance Use Treatment: Yes Mental Status Exam - Mental Status Exam Alert and Oriented to: Time, Place, Person Cognitive Function: Good Patient Appearance: Well Groomed Mood: Sad Affect: Appropriate, Mood Congruent Patient Behavior: Appropriate, Cooperative Speech Pattern: Clear Voice Loudness: Normal Thought Process: Goal Oriented Thought Disorder: Not Present Hallucinations: Denies Suicidal Ideation: Denies Homicidal Ideation: Denies Insight/Judgement: Fair Sleep: Fair Appetite: Fair Muscle strength/Tone: Normal Gait/Station: Other (walks with a cane) Psychiatric Findings - Problem List ([place] 1, 2,3) (1) Alcohol dependence Current Visit: Yes Status: Acute (2) Bipolar II disorder Current Visit: Yes Status: Acute (3) Substance induced mood disorder Current Visit: No Status: Acute (4) CAD (coronary artery disease) of bypass graft Current Visit: No Status: Chronic Qualifiers: [place] vs. transplanted heart: unspecified whether [place] or transplanted heart Associated angina: angina presence unspecified Qualified Code(s): I25.810 - Atherosclerosis of coronary artery bypass graft(s) without angina pectoris (5) CHF (congestive heart failure) Current Visit: No Status: Chronic (6) Cocaine dependence Current Visit: No Status: Chronic (7) HLD (hyperlipidemia) Current Visit: No Status: Chronic Qualifiers: Hyperlipidemia type: unspecified Qualified Code(s): E78.5 - Hyperlipidemia , unspecified - Initial Treatment Plan Initial Treatment Plan: Psychotherapy, monitor progress as needed.
--- NOTE | 2017-08-15 15:57 | PN ---
[facility] Progress Note Note: Patient c/o of right big toe. Reports prior hx of gout and difficulty with ambulation. Patient currently ambulates with a cane Vital Signs Temperature 98.9 F 08/15/17 07:24 Pulse Rate 99 H 08/15/17 07:24 Respiratory Rate 18 08/15/17 07:24 Blood Pressure 112/54 08/15/17 07:24 O2 Sat by Pulse Oximetry (%) A/P Patient AOx3, no distress normal HR and Rythm Lungs clear , no adventitious breath sounds, SOB with exertion ambulates with cane, gait unsteady + redness on the right toe and tenderness - Toes pain (R) Plan: tylenol PRN uric acid levels Fall precautions wheelchair for mobility Continue to monitor
[2017-08-15] MEDS: THIAMINE HCL 100 MG TABLET (FP) PO SCH (21:59)
[2017-08-15] MEDS: ATORVASTATIN CA 20 MG TABLET (FP) PO SCH (22:00)
[2017-08-16] MEDS: FUROSEMIDE 40 MG TABLET (FP) PO SCH (10:41)
[2017-08-16] MEDS: LOSARTAN POTASSIUM 50 MG TABLET (FP) PO SCH (10:41)
[2017-08-16] MEDS: PRENATAL VITAMINS W/ FOLIC ACID TABLET (FP) PO SCH (10:41)
[2017-08-16] MEDS: CLOPIDOGREL BISULFATE 75 MG TABLET (FP) PO SCH (10:41)
[2017-08-16] MEDS: ISOSORBIDE MONONITRATE 30 MG TAB.SR.24H (FP) PO SCH (10:41)
[2017-08-16] MEDS: ASPIRIN 81 MG CHEWABLE TABLETS PO SCH (10:41)
--- NOTE | 2017-08-16 15:51 | PN ---
S Progress Note Note: Pt seen for follow up labs. Vital Signs Temperature 99.1 F 08/16/17 07:09 Pulse Rate 100 H 08/16/17 07:09 Respiratory Rate 20 08/16/17 07:09 Blood Pressure 120/94 08/16/17 07:09 O2 Sat by Pulse Oximetry (%) Laboratory Tests 08/16/17 08:15 Uric Acid 7.9 H Subj: Pt c/o right great toe swelling and pain. Has history of gout. Last flare up years ago. Obj: Ext: +2 pedal edema BLE. Right great toe reddened and tender to touch. A/P: Gout Elevated uric acid Will order Allopurinol 100mg BID Continue to monitor clinically. Repeat uric acid level 08/20/17.
[2017-08-16] MEDS: THIAMINE HCL 100 MG TABLET (FP) PO SCH (22:13)
[2017-08-16] MEDS: ALLOPURINOL 100 MG TABLET (FP) PO SCH (22:13)
[2017-08-16] MEDS: ATORVASTATIN CA 20 MG TABLET (FP) PO SCH (22:14)
[2017-08-17] MEDS: FUROSEMIDE 40 MG TABLET (FP) PO SCH (09:15)
[2017-08-17] MEDS: ASPIRIN 81 MG CHEWABLE TABLETS PO SCH (09:15)
[2017-08-17] MEDS: PRENATAL VITAMINS W/ FOLIC ACID TABLET (FP) PO SCH (09:15)
[2017-08-17] MEDS: ISOSORBIDE MONONITRATE 30 MG TAB.SR.24H (FP) PO SCH (09:15)
[2017-08-17] MEDS: LOSARTAN POTASSIUM 50 MG TABLET (FP) PO SCH (09:15)
[2017-08-17] MEDS: CLOPIDOGREL BISULFATE 75 MG TABLET (FP) PO SCH (09:15)
[2017-08-17] MEDS: ALLOPURINOL 100 MG TABLET (FP) PO SCH ×2 (09:18→22:00)
[2017-08-17] MEDS: ALBUTEROL SO4 18 GM HFA INHALER IH PRN (09:19)
[2017-08-17] MEDS: ACETAMINOPHEN 325 MG TABLET (FP) PO PRN ×2 (14:39→22:00)
[2017-08-17] MEDS: ATORVASTATIN CA 20 MG TABLET (FP) PO SCH (22:00)
[2017-08-17] MEDS: THIAMINE HCL 100 MG TABLET (FP) PO SCH (22:00)
[2017-08-18] MEDS: ASPIRIN 81 MG CHEWABLE TABLETS PO SCH (09:37)
[2017-08-18] MEDS: PRENATAL VITAMINS W/ FOLIC ACID TABLET (FP) PO SCH (09:37)
[2017-08-18] MEDS: FUROSEMIDE 40 MG TABLET (FP) PO SCH (09:38)
[2017-08-18] MEDS: LOSARTAN POTASSIUM 50 MG TABLET (FP) PO SCH (09:38)
[2017-08-18] MEDS: ISOSORBIDE MONONITRATE 30 MG TAB.SR.24H (FP) PO SCH (09:38)
[2017-08-18] MEDS: ALLOPURINOL 100 MG TABLET (FP) PO SCH ×2 (09:38→21:44)
[2017-08-18] MEDS: CLOPIDOGREL BISULFATE 75 MG TABLET (FP) PO SCH (09:39)
[2017-08-18] MEDS: THIAMINE HCL 100 MG TABLET (FP) PO SCH (21:44)
[2017-08-18] MEDS: ATORVASTATIN CA 20 MG TABLET (FP) PO SCH (21:44)
[2017-08-19 06:55] VITALS: BP 129/71; PULSE 83; TEMP 98.3
[2017-08-19] MEDS: ASPIRIN 81 MG CHEWABLE TABLETS PO SCH (10:56)
[2017-08-19] MEDS: PRENATAL VITAMINS W/ FOLIC ACID TABLET (FP) PO SCH (10:56)
[2017-08-19] MEDS: FUROSEMIDE 40 MG TABLET (FP) PO SCH (10:56)
[2017-08-19] MEDS: CLOPIDOGREL BISULFATE 75 MG TABLET (FP) PO SCH (10:56)
[2017-08-19] MEDS: ISOSORBIDE MONONITRATE 30 MG TAB.SR.24H (FP) PO SCH (10:56)
[2017-08-19] MEDS: LOSARTAN POTASSIUM 50 MG TABLET (FP) PO SCH (10:57)
[2017-08-19] MEDS: ALBUTEROL SO4 18 GM HFA INHALER IH PRN (10:59)
[2017-08-19] MEDS: ALLOPURINOL 100 MG TABLET (FP) PO SCH (11:00)
--- NOTE | 2017-08-19 12:05 | PN ---
Psychiatric Progress Note Vital Signs: Vital Signs Period Temp Pulse Resp BP Sys/Rosenberg Pulse Ox Last 24 Hr 98.3 F 83 18-20 129/71 Date of Session: 08/19/17 Chief Complaint:: "Leaving AMA". HPI: Patient is a 62 year old male admitted to on 08/15/17, history of alcohol , cocaine dependence comorbid Bipolar II disorder. ROS: Hypertension, bronchial asthma/COPD, hypercholesterolemia, osteoarthritis of knees and back and a history of multiple surgeries(triple coronary artery bypass graft in 2007, gastric bypass in 1999 and bilateral knee replacement 2007 & 2009. Obesity. Current Medications: Active Medications Generic Name Dose Route Start Last Admin Trade Name Freq PRN Reason Stop Dose Admin Acetaminophen 650 mg 08/14/17 17:17 08/17/17 22:00 Tylenol - PO 650 mg Q4H PRN Administration FEVER Al Hydroxide/Mg Hydroxide 30 ml 08/14/17 17:17 Mylanta Oral Suspension - PO Q6H PRN DYSPEPSIA Albuterol Sulfate 1 puff 08/14/17 17:17 08/19/17 10:59 Ventolin Hfa Inhaler - IH 1 puff Q4H PRN Administration ASTHMA Allopurinol 100 mg 08/16/17 22:00 08/19/17 11:00 Zyloprim - PO 100 mg BID CHENTE Administration Aspirin 81 mg 08/15/17 10:00 08/19/17 10:56 Asa - PO 81 mg DAILY CHENTE Administration Atorvastatin Calcium 20 mg 08/14/17 22:00 08/18/17 21:44 Lipitor - PO 20 mg HS CHENTE Administration Clopidogrel Bisulfate 75 mg 08/15/17 10:00 08/19/17 10:56 Plavix - PO 75 mg DAILY CHENTE Administration Eucalyptus/Menthol/Phenol/Sorbitol 1 each 08/14/17 17:17 Cepastat Lozenge - MM Q4H PRN SORE THROAT Furosemide 40 mg 08/15/17 10:00 08/19/17 10:56 Lasix - PO 40 mg DAILY CHENTE Administration Guaifenesin 10 ml 08/14/17 17:17 Robitussin Dm - PO Q6H PRN COUGH Hydroxyzine Pamoate 50 mg 08/14/17 17:17 Vistaril - PO Q4H PRN AGITATION Isosorbide Mononitrate 30 mg 08/15/17 10:00 08/19/17 10:56 Imdur - PO 30 mg DAILY CHENTE Administration Loperamide HCl 4 mg 08/14/17 17:17 Imodium - PO Q6H PRN DIARRHEA Losartan Potassium 50 mg 08/15/17 10:00 08/19/17 10:57 Cozaar - PO 50 mg DAILY CHENTE Administration Magnesium Citrate 300 ml 08/14/17 17:17 Citroma - PO Q48H PRN CONSTIPATION Magnesium Hydroxide 30 ml 08/14/17 17:17 Milk Of Magnesia - PO DAILY PRN CONSTIPATION Melatonin 5 mg 08/14/17 22:00 Melatonin PO HS PRN INSOMNIA Nitroglycerin 0.4 mg 08/14/17 17:17 Nitrostat - SL PRN PRN chest pain Multivit/Folic Acid/Iron 1 tab 08/15/17 10:00 08/19/17 10:56 Vitamins (Sjr) - PO 1 tab DAILY CHENTE Administration Thiamine HCl 100 mg 08/14/17 22:00 08/18/17 21:44 Vitamin B1 - PO 100 mg HS CHENTE Administration Current Side Effect: No Lab tests ordered: No Lab tests reviewed: Yes Provider note:: Patient decided to leave treatment AMA, met with the patient to explore reasons for terminations treatment at this point, patient reportd that he need to take care of his persontal issues, patient was encouraged to stay and focus on his treatment, but adamant to leave treatment, patient appears stable for discharge. Total face to face time:: 15 Mental Status Exam - Mental Status Exam Alert and Oriented to: Time, Place, Person Cognitive Function: Good Patient Appearance: Well Groomed Mood: Hopeful Affect: Appropriate, Mood Congruent Patient Behavior: Appropriate, Cooperative Speech Pattern: Clear, Appropriate Voice Loudness: Normal Thought Process: Intact Thought Disorder: Not Present Hallucinations: Denies Suicidal Ideation: Denies Homicidal Ideation: Denies Insight/Judgement: Fair Sleep: Fair Appetite: Good Muscle strength/Tone: Normal Gait/Station: Normal Psychiatric Treatment Plan - Problem List (1) Alcohol dependence Current Visit: Yes (2) Bipolar II disorder Current Visit: Yes (3) Substance induced mood disorder Current Visit: No (4) CAD (coronary artery disease) of bypass graft Current Visit: No Qualifiers: [place] vs. transplanted heart: unspecified whether [place] or transplanted heart Associated angina: angina presence unspecified Qualified Code(s): I25.810 - Atherosclerosis of coronary artery bypass graft(s) without angina pectoris (5) CHF (congestive heart failure) Current Visit: No (6) Cocaine dependence Current Visit: No (7) HLD (hyperlipidemia) Current Visit: No Qualifiers: Hyperlipidemia type: unspecified Qualified Code(s): E78.5 - Hyperlipidemia , unspecified
== END 2017-08-19 11:30 | disposition left against medical advice (07) | DRG 894 ==
LOC: YASAS 16:54 → Y5N 19:51
PROVIDERS: ADMIT Psychiatry & Neurology Psychiatry; ATTEND Psychiatry & Neurology Psychiatry
PROC: HZ42ZZZ Group Counseling for Substance Abuse Treatment, Cognitive-Behavioral (ICD-10-PCS; principal; 2017-08-14)
DX: F10.230 Alcohol dependence with withdrawal, uncomplicated (principal); F14.20 Cocaine dependence, uncomplicated; F19.282 Other psychoactive substance dependence with psychoactive substance-induced sleep disorder; F31.81 Bipolar II disorder; I25.810 Atherosclerosis of coronary artery bypass graft(s) without angina pectoris; F19.24 Other psychoactive substance dependence with psychoactive substance-induced mood disorder; I50.9 Heart failure, unspecified; E78.5 Hyperlipidemia, unspecified; M10.9 Gout, unspecified; M79.674 Pain in right toe(s); J42 Unspecified chronic bronchitis; Z98.84 Bariatric surgery status
CPT/HCPCS: 36415; 84550; 93005; 93010